=== PATIENT | male | born 1950 | race Caucasian/White ===

== ENCOUNTER 2018-03-15 19:53 | Inpatient (IN) | payer MEDICARE, MEDICAID ==
[~2018-03-15] VITALS: Ht 177.8 cm; Wt 90.3 kg
[~2018-03-15 19:53] MED LIST: FERROUS SULFAT325 MG ORAL; FLEET ENEMA133 ML RECTAL; JANUVIA25 MG ORAL; MILK OF MA400 MG/51 ORAL; NOVOLIN R100 UNIT/1 SUBQ; PROTONIX40 MG ORAL; TYLENOL325 MG ORAL; VITAMIN C500 M1 ORAL
[2018-03-15 19:55] VITALS: BP 158/80
--- NOTE | 2018-03-15 19:55 | NUR ---
ED Nurse Note: "Gradual weight loss (13# over three months), and one dark stool today. pt is alert and oriented times 4 and is able to follow commands. pt denies any pain. pt denies any complications with voiding or passing stool.
[2018-03-15] MEDS ORDERED: ZYPREXA5 MG ORAL (20:00)
[2018-03-15] MEDS ORDERED: TAMSULOSIN HCL0.4 MG ORAL (20:00)
[2018-03-15] MEDS ORDERED: mylanta (20:00)
[2018-03-15] MEDS ORDERED: COLACE100 MG ORAL (20:00)
[2018-03-15] MEDS ORDERED: NORVASC5 MG ORAL (20:00)
[2018-03-15] MEDS ORDERED: AMARYL1 MG ORAL (20:00)
[2018-03-15 21:03] LABS: APPEARANCE,URINE CLEAR; BILIRUBIN, URINE NEGATIVE (NEGATIVE); COLOR,URINE PALE YELLOW; GLUCOSE, URINE (UA) NEGATIVE (NEGATIVE); KETONES,URINE NEGATIVE (NEGATIVE); LEUKOCYTE ESTERASE ,URINE NEGATIVE (NEGATIVE); NITRITE,URINE NEGATIVE (NEGATIVE); PH,URINE 7 (4.5-8.0); PROTEIN,URINE NEGATIVE (NEGATIVE); UROBILINOGEN,URINE NORMAL MG/DL (0.0-1.0)
--- NOTE | 2018-03-15 21:33 | Emergency Room Report ---
History of Present Illness General Chief Complaint: General Complaint Source: Medical Record Present Illness HPI Patient presents emergency department today complaining of general weakness decreased appetite weight loss and melena. Patient denies any fever chest pain shortness breath. Patient primary care physician is Dr. Sabino Adam. Patient fairly stays at a snf. Patient has history of dementia. Symptoms noted to be moderate.No other modifying factors. No other associated signs and symptoms. No other complaints were noted. Allergies: Coded Allergies: No Known Allergies (Unverified , 06/04/15) Patient History Past Medical History: DM, HTN Past Surgical History: none Pertinent Family History: none Social History: Denies: smoking, alcohol use, drug use Reviewed Nursing Documentation: PMH: Agreed; PSxH: Agreed Nursing Documentation-PMH Hx Hypertension: Yes Hx Diabetes: Yes Hx Gastrointestinal Problems: Yes - Reflux Review of Systems All Other Systems: negative except mentioned in HPI Physical Exam Vital Signs Date Time Temp Pulse Resp B/P (MAP) Pulse Ox O2 Delivery O2 Flow Rate FiO2 03/15/18 19:46 97.3 76 18 158/80 94 Room Air 03/15/18 19:55 99 Sp02 EP Interpretation: reviewed, normal General Appearance: normal inspection, well appearing, no apparent distress, alert Head: atraumatic Eyes: bilateral eye normal inspection ENT: normal ENT inspection, hearing grossly normal, normal voice Neck: normal inspection, full range of motion, supple, no bony tend Respiratory: normal inspection, lungs clear, normal breath sounds, no respiratory distress, no retraction, no wheezing Cardiovascular #1: regular rate, rhythm, no edema Gastrointestinal: normal inspection, normal bowel sounds, non tender, soft, no guarding, no hernia Rectal: other - patient refused Genitourinary: no CVA tenderness Musculoskeletal: normal inspection, back normal, normal range of motion Neurologic: normal inspection, alert, responsive, speech normal Psychiatric: normal inspection, judgement/insight normal, mood/affect normal Skin: normal inspection, normal color, no rash Medical Decision Making Diagnostic Impression: Primary Impression: Failure to thrive in adult Additional Impression: GI bleeding ER Course Patient presents emergency department today with weakness and possible GI bleeding. Differential considerations include electrolyte abnormality, anemia, upper or lower GI bleeding.Given the severity of the patient's presentation I felt this is a highly complex patient. This patient required extensive workup. Patient laboratory workup is pending this time will likely admit to Dr. Sabino Adam for further treatment. Labs Test 03/15/18 20:45 03/15/18 21:14 Urine Color Pale yellow Urine Appearance Clear Urine pH 7 (4.5-8.0) Urine Specific [place] 1.005 (1.005-1.035) Urine Protein Negative (NEGATIVE) Urine Glucose (UA) Negative (NEGATIVE) Urine Ketones Negative (NEGATIVE) Urine Blood Negative (NEGATIVE) Urine Nitrite Negative (NEGATIVE) Urine Bilirubin Negative (NEGATIVE) Urine Urobilinogen Normal MG/DL (0.0-1.0) Urine Leukocyte Esterase Negative (NEGATIVE) Last Vital Signs Date Time Temp Pulse Resp B/P (MAP) Pulse Ox O2 Delivery O2 Flow Rate FiO2 03/15/18 19:55 76 18 Room Air 99 03/15/18 19:55 97.3 158/80 94 Status: improved Disposition: ADMITTED INPATIENT Condition: Serious Referrals: Sabino Gomez MD (PCP) Raymon Barnett MD Mar 15, 2018 21:33
[2018-03-15 21:42] LABS: INR 1.1 (0.9-1.1)
[2018-03-15 21:45] LABS: BASOPHILS % (AUTO) 1.2 % (0.0-2.0); EOSINOPHILS % (AUTO) 2.1 % (0.0-3.0); HEMATOCRIT 41.7 % (42.0-52.0); HEMOGLOBIN 13.2 G/DL (14.2-18.0); LYMPHOCYTES % (AUTO) 15.3 % (20.0-45.0); MEAN CORPUSCULAR VOLUME 82 FL (80-99); MONOCYTES % (AUTO) 8.7 % (1.0-10.0); NEUTROPHILS % (AUTO) 72.7 % (45.0-75.0); PLATELET COUNT 221 K/UL (150-450); RED BLOOD COUNT 5.08 M/UL (4.70-6.10); RED CELL DISTRIBUTION WIDTH 16.1 % (11.6-14.8); WHITE BLOOD COUNT 9.3 K/UL (4.8-10.8)
[2018-03-15 21:46] LABS: ANION GAP 7 mmol/L (5-15); BLOOD UREA NITROGEN 16 mg/dL (7-18); CARBON DIOXIDE 30 MMOL/L (21-32); CHLORIDE 105 MMOL/L (98-107); CREATININE 1.3 MG/DL (0.55-1.30); POTASSIUM 3.5 MMOL/L (3.5-5.1); SODIUM 142 MMOL/L (136-145)
[2018-03-15 21:51] LABS: ALANINE AMINOTRANSFERASE 19 U/L (12-78); ALBUMIN 3.2 G/DL (3.4-5.0); ALBUMIN/GLOBULIN RATIO 0.7 (1.0-2.7); ALKALINE PHOSPHATASE 120 U/L (46-116); ASPARTATE AMINO TRANSFERASE 21 U/L (15-37); BILIRUBIN,TOTAL 0.3 MG/DL (0.2-1.0)
[2018-03-15 22:13] VITALS: BP 150/78
--- NOTE | 2018-03-15 23:02 | NUR ---
ED Nurse Note: pt is transfered to MED SURG with RN KP. pt status vital signs, status and condition has been reported to ERMD and receving RN. pt is stable for transfer.
[2018-03-15 23:03] VITALS: BP 145/78
--- NOTE | 2018-03-15 23:09 | NUR ---
ED Nurse Note: PT refused CRE/ VRE and MRSA swab.
[2018-03-16] VITALS: BP 136/96
[2018-03-16] MEDS ORDERED: Fleet's Enema 133ml RECTAL PRN
--- NOTE | 2018-03-16 | NUR ---
NURSE NOTES: Admitted patient awake,alert,verbal,ambulatory,follows command,with essentially normal vital signs. Admiting orders obtained from DR Gomez and carried out. Patient refused to removed his street clothes to hospital gown.
[2018-03-16 03:52] VITALS: BP 120/82
--- NOTE | 2018-03-16 07:00 | NUR ---
HAND-OFF: Report given to Aline Solares RN.Patient refused to be hooked back his IV fluid..
--- NOTE | 2018-03-16 07:27 | NUR ---
nurse notes received patient sitting on the edge of the bed, patient aaox4, no sign of distress, HL patent refused to hook for IV , npo X meds instructed, on fall precaution observed and maintained, kept clean dry and intact, will cont. to monitor leonardo hidalgo
[2018-03-16] MEDS: Docusate 100mg cap ORAL SCH (08:09)
[2018-03-16] MEDS: Ascorbic Acid 500mg tab ORAL SCH (08:09)
[2018-03-16] MEDS: Milk of Magnesia 30ml Ud ORAL SCH (08:09)
--- NOTE | 2018-03-16 09:01 | NUR ---
NURSE NOTES PATIENT REFUSED LABS AND V/S THIS MORNING BRONWYN, EN
--- NOTE | 2018-03-16 12:15 | GI Initial Consult Note ---
History of Present Illness General Date patient seen: Mar 16, 2018 Time patient seen: 12:10 Reason for Hospitalization: General Complaint Referring physician: SABINO DODD Reason for Consultation: GI BLEED Present Illness HPI Patient presents emergency department today complaining of general weakness decreased appetite weight loss and melena. Patient denies any fever chest pain shortness breath. Patient primary care physician is Dr. Sabino Adam. Patient fairly stays at a senior care. Patient has history of dementia. Symptoms noted to be moderate.No other modifying factors. No other associated signs and symptoms. No other complaints were noted. GI consulted for reported melena. ROS limited, patient with psychiatric history currently refusing all care. Patient denies any abdominal pain. Denies any report of dark stools. Denies any nausea or vomiting. The patient is refusing all care and is just requesting to be left alone. Unknown history of endoscopic colonoscopy at this time. Labs reviewed showed that the patient have mild normocytic anemia and mild alkaline phosphatase elevation. Unable to obtain any other history. Home Meds Reported Medications Olanzapine* (ZYPREXA*) 5 Mg Tablet, 5 MG ORAL DAILY, TAB 03/15/18 Amlodipine Besylate (Norvasc) 5 Mg Tablet, 5 MG ORAL DAILY, TAB 03/15/18 [mylanta] No Conflict Check 03/15/18 Tamsulosin Hcl (TAMSULOSIN HCL*) 0.4 Mg Cap.er.24h, 0.4 MG ORAL BEDTIME, CAP 03/15/18 Docusate Sodium* (COLACE*) 100 Mg Capsule, 100 MG ORAL DAILY, CAP 03/15/18 Glimepiride* (AMARYL*) 1 Mg Tablet, 1 MG ORAL DAILY, TAB 03/15/18 Insulin Regular, Human* (NOVOLIN R*) 100 Unit/1 Ml Vial, 0 SUBQ BIDAC, UNITS 07/21/15 Na Phos,M-B/Na Phos,Di-Ba* (FLEET ENEMA*) 133 Ml Enema, 133 ML RECTAL DAILY PRN for Constipation, ML 0 Refills 07/21/15 Ascorbic Acid* (VITAMIN C*) 500 Mg Tablet, 500 MG ORAL DAILY, #30 TAB 0 Refills 07/21/15 Acetaminophen (Tylenol) 325 Mg Tab, 325 MG ORAL Q6H PRN for For Pain, #30 TAB 0 Refills 07/21/15 Pantoprazole* (PROTONIX*) 40 Mg Tablet.dr, 40 MG ORAL DAILY, TAB 07/21/15 Magnesium Hydroxide* (MILK OF MAGNESIA*) 400 Mg/5 Ml Oral.susp, 30 ML ORAL DAILY , ML 07/21/15 Sitagliptin* (JANUVIA*) 25 Mg Tablet, 100 MG ORAL DAILY, TAB 07/21/15 Ferrous Sulfate* (FERROUS SULFATE*) 325 Mg Tablet, 325 MG ORAL DAILY, #30 TAB 0 Refills 07/21/15 Med list reviewed/reconciled: Yes Allergies: Coded Allergies: No Known Allergies (Unverified , 06/04/15) Patient History PMH Narrative Past Medical History: DM, HTN Past Surgical History: none Pertinent Family History: none Social History: Denies: smoking, alcohol use, drug use Reviewed Nursing Documentation: PMH: Agreed; PSxH: Agreed Nursing Documentation-PMH Hx Hypertension: Yes Hx Diabetes: Yes Hx Gastrointestinal Problems: Yes - Reflux Social History: Denies: smoking, alcohol use, drug use, other Review of Systems All Other Systems: negative except mentioned in HPI Physical Exam Vital Signs Date Time Temp Pulse Resp B/P (MAP) Pulse Ox O2 Delivery O2 Flow Rate FiO2 03/15/18 19:46 97.3 76 18 158/80 94 Room Air 03/15/18 19:55 99 Sp02 EP Interpretation: reviewed, normal Labs Laboratory Tests Test 03/15/18 20:45 03/15/18 21:14 Urine Color Pale yellow Urine Appearance Clear Urine pH 7 (4.5-8.0) Urine Specific [place] 1.005 (1.005-1.035) Urine Protein Negative (NEGATIVE) Urine Glucose (UA) Negative (NEGATIVE) Urine Ketones Negative (NEGATIVE) Urine Blood Negative (NEGATIVE) Urine Nitrite Negative (NEGATIVE) Urine Bilirubin Negative (NEGATIVE) Urine Urobilinogen Normal MG/DL (0.0-1.0) Urine Leukocyte Esterase Negative (NEGATIVE) White Blood Count 9.3 K/UL (4.8-10.8) Red Blood Count 5.08 M/UL (4.70-6.10) Hemoglobin 13.2 G/DL (14.2-18.0) L Hematocrit 41.7 % (42.0-52.0) L Mean Corpuscular Volume 82 FL (80-99) Mean Corpuscular Hemoglobin 25.9 PG (27.0-31.0) L Mean Corpuscular Hemoglobin Concent 31.6 G/DL (32.0-36.0) L Red Cell Distribution Width 16.1 % (11.6-14.8) H Platelet Count 221 K/UL (150-450) Mean Platelet Volume 8.3 FL (6.5-10.1) Neutrophils (%) (Auto) 72.7 % (45.0-75.0) Lymphocytes (%) (Auto) 15.3 % (20.0-45.0) L Monocytes (%) (Auto) 8.7 % (1.0-10.0) Eosinophils (%) (Auto) 2.1 % (0.0-3.0) Basophils (%) (Auto) 1.2 % (0.0-2.0) Prothrombin Time 11.6 SEC (9.30-11.50) H Prothromb Time International Ratio 1.1 (0.9-1.1) Activated Partial Thromboplast Time 27 SEC (23-33) Sodium Level 142 MMOL/L (136-145) Potassium Level 3.5 MMOL/L (3.5-5.1) Chloride Level 105 MMOL/L (98-107) Carbon Dioxide Level 30 MMOL/L (21-32) Anion Gap 7 mmol/L (5-15) Blood Urea Nitrogen 16 mg/dL (7-18) Creatinine 1.3 MG/DL (0.55-1.30) Estimat Glomerular Filtration Rate 54.7 mL/min (>60) Glucose Level 87 MG/DL (74-106) Calcium Level 9.0 MG/DL (8.5-10.1) Total Bilirubin 0.3 MG/DL (0.2-1.0) Aspartate Amino Transf (AST/SGOT) 21 U/L (15-37) Alanine Aminotransferase (ALT/SGPT) 19 U/L (12-78) Alkaline Phosphatase 120 U/L (46-116) H Troponin I 0.000 ng/mL (0.000-0.056) Total Protein 7.9 G/DL (6.4-8.2) Albumin 3.2 G/DL (3.4-5.0) L Globulin 4.7 g/dL Albumin/Globulin Ratio 0.7 (1.0-2.7) L Lipase 232 U/L (73-393) General Appearance: well appearing, no apparent distress, alert Head: normocephalic EENT: PERRL/EOMI, normal ENT inspection Neck: supple Respiratory: normal breath sounds, no respiratory distress Cardiovascular: normal rate Gastrointestinal: normal inspection, non tender, soft, normal bowel sounds, non -distended Rectal: deferred Genitourinary: deferred Musculoskeletal: normal inspection, back normal Neurologic: normal inspection, alert, oriented x3, responsive Psychiatric: normal inspection, judgement/insight normal, memory normal Skin: normal inspection, normal color, no rash, warm/dry, palpation normal, well hydrated Lymphatic: normal inspection, no adenopathy Current Medications Current Medications Medications (Trade) Dose Ordered Sig/Pablo Route PRN Reason Start Time Stop Time Status Last Admin Dose Admin Acetaminophen (Tylenol) 650 mg Q4H PRN ORAL Mild Pain/Temp > 100.5 03/16/18 00:00 04/15/18 00:00 Amlodipine Besylate (Norvasc) 5 mg DAILY ORAL 03/16/18 09:00 04/15/18 08:59 03/16/18 08:10 Ascorbic Acid (Vitamin C) 500 mg DAILY ORAL 03/16/18 09:00 04/15/18 08:59 03/16/18 08:09 Docusate Sodium (Colace) 100 mg DAILY ORAL 03/16/18 09:00 04/15/18 08:59 03/16/18 08:09 Ferrous Sulfate (Feosol) 325 mg DAILY ORAL 03/16/18 09:00 04/15/18 08:59 03/16/18 08:09 Magnesium Hydroxide (Mom) 30 ml DAILY ORAL 03/16/18 09:00 04/15/18 08:59 03/16/18 08:09 Olanzapine (ZyPREXA) 5 mg DAILY ORAL 03/16/18 09:00 04/15/18 08:59 03/16/18 08:09 Pantoprazole (Protonix) 40 mg DAILY ORAL 03/16/18 09:00 04/15/18 08:59 03/16/18 08:09 Sodium Chloride 1,000 ml @ 65 mls/hr [id number] IV 03/16/18 00:00 04/15/18 00:00 2/7/19 00:33 Sodium Phosphate (Fleet's Sodium Phosl Enema) 133 ml DAILY PRN RECTAL Constipation 03/16/18 00:00 04/15/18 00:00 Tamsulosin HCl (Flomax) 0.4 mg BEDTIME ORAL 03/16/18 21:00 04/15/18 20:59 GI: Plan Problems: (1) Failure to thrive in adult (2) GI bleeding (3) Psychiatric disorder Plan Patient is refusing all care We will advance diet monitor for any signs of bleeding. anemia work up OB stool r/o GI bleed monitor H&H, prn transfusions bowel regime ppi fu labs will consider endoscopy if urgent Needs psychiatric follow-up Discussed with Dr. Rivera. Thank you for this patient referral, we will follow. The patient was seen and examined at bedside and all new and available data was reviewed in the patients chart. I agree with the above findings, impression and plan. (Patient seen earlier today. Signature stamp does not reflect patient encounter time.). - MD Anabelle Antoine,[facility] Mar 16, 2018 12:15
--- NOTE | 2018-03-16 12:34 | Consultation ---
History of Present Illness General Chief Complaint: General Complaint Referring physician: OTIS DODD Reason for Consultation: GI BLEED Present Illness HPI 67 yo male with hx of schzophrenia, general weakness decreased appetite weight loss and melena. Patient denies any fever chest pain shortness breath. the pt is disorganized and easily agitated the pt is not following redirection Allergies: Coded Allergies: No Known Allergies (Unverified , 06/04/15) Medication History Scheduled Amlodipine Besylate (Norvasc), 5 MG ORAL DAILY, (Reported) Ascorbic Acid* (Vitamin C*), 500 MG ORAL DAILY, (Reported) Docusate Sodium* (Colace*), 100 MG ORAL DAILY, (Reported) Ferrous Sulfate* (Ferrous Sulfate*), 325 MG ORAL DAILY, (Reported) Glimepiride* (Amaryl*), 1 MG ORAL DAILY, (Reported) Insulin Regular, Human* (Novolin R*), 0 SUBQ BIDAC, (Reported) Magnesium Hydroxide* (Milk Of Magnesia*), 30 ML ORAL DAILY, (Reported) Olanzapine* (Zyprexa*), 5 MG ORAL DAILY, (Reported) Pantoprazole* (Protonix*), 40 MG ORAL DAILY, (Reported) Sitagliptin* (Januvia*), 100 MG ORAL DAILY, (Reported) Tamsulosin Hcl (Tamsulosin Hcl*), 0.4 MG ORAL BEDTIME, (Reported) Scheduled PRN Acetaminophen (Tylenol), 325 MG ORAL Q6H PRN for For Pain, (Reported) Na Phos,M-B/Na Phos,Di-Ba* (Fleet Enema*), 133 ML RECTAL DAILY PRN for Constipation, (Reported) Miscellaneous Medications [mylanta], (Reported) Patient History Limited by: medical condition History Provided By: Patient, Medical Record, PMD Healthcare decision maker Resuscitation status Full Code Advanced Directive on File No Past Medical/Surgical History Past Medical/Surgical History: (1) GI bleeding (2) Psychiatric disorder (3) Failure to thrive in adult Review of Systems Psychiatric: Reports: prior hx, anxiety, depressed feelings, emotional problems , hallucinations Physical Exam General Appearance: alert, confused, agitated Last 24 Hour Vital Signs Date Time Temp Pulse Resp B/P (MAP) Pulse Ox O2 Delivery O2 Flow Rate FiO2 03/16/18 08:10 72 120/82 03/16/18 08:00 Room Air 03/16/18 03:52 98.5 72 18 120/82 (95) 95 03/16/18 00:00 98.1 73 19 136/96 (109) 95 03/15/18 23:59 Room Air 03/15/18 23:04 97.3 70 17 145/78 99 Room Air 99 03/15/18 23:03 97.3 70 17 145/78 99 Room Air 03/15/18 22:13 97.3 79 17 150/78 99 Room Air 03/15/18 19:55 76 18 Room Air 99 03/15/18 19:55 97.3 83 18 158/80 94 Room Air 03/15/18 19:46 97.3 76 18 158/80 94 Room Air Intake and Output 03/15/18 03/16/18 19:00 07:00 Intake Total 390 ml Balance 390 ml Intake IV Total 390 ml # Voids 1 Laboratory Tests Test 03/15/18 20:45 03/15/18 21:14 Urine Color Pale yellow Urine Appearance Clear Urine pH 7 (4.5-8.0) Urine Specific [place] 1.005 (1.005-1.035) Urine Protein Negative (NEGATIVE) Urine Glucose (UA) Negative (NEGATIVE) Urine Ketones Negative (NEGATIVE) Urine Blood Negative (NEGATIVE) Urine Nitrite Negative (NEGATIVE) Urine Bilirubin Negative (NEGATIVE) Urine Urobilinogen Normal MG/DL (0.0-1.0) Urine Leukocyte Esterase Negative (NEGATIVE) White Blood Count 9.3 K/UL (4.8-10.8) Red Blood Count 5.08 M/UL (4.70-6.10) Hemoglobin 13.2 G/DL (14.2-18.0) L Hematocrit 41.7 % (42.0-52.0) L Mean Corpuscular Volume 82 FL (80-99) Mean Corpuscular Hemoglobin 25.9 PG (27.0-31.0) L Mean Corpuscular Hemoglobin Concent 31.6 G/DL (32.0-36.0) L Red Cell Distribution Width 16.1 % (11.6-14.8) H Platelet Count 221 K/UL (150-450) Mean Platelet Volume 8.3 FL (6.5-10.1) Neutrophils (%) (Auto) 72.7 % (45.0-75.0) Lymphocytes (%) (Auto) 15.3 % (20.0-45.0) L Monocytes (%) (Auto) 8.7 % (1.0-10.0) Eosinophils (%) (Auto) 2.1 % (0.0-3.0) Basophils (%) (Auto) 1.2 % (0.0-2.0) Prothrombin Time 11.6 SEC (9.30-11.50) H Prothromb Time International Ratio 1.1 (0.9-1.1) Activated Partial Thromboplast Time 27 SEC (23-33) Sodium Level 142 MMOL/L (136-145) Potassium Level 3.5 MMOL/L (3.5-5.1) Chloride Level 105 MMOL/L (98-107) Carbon Dioxide Level 30 MMOL/L (21-32) Anion Gap 7 mmol/L (5-15) Blood Urea Nitrogen 16 mg/dL (7-18) Creatinine 1.3 MG/DL (0.55-1.30) Estimat Glomerular Filtration Rate 54.7 mL/min (>60) Glucose Level 87 MG/DL (74-106) Calcium Level 9.0 MG/DL (8.5-10.1) Total Bilirubin 0.3 MG/DL (0.2-1.0) Aspartate Amino Transf (AST/SGOT) 21 U/L (15-37) Alanine Aminotransferase (ALT/SGPT) 19 U/L (12-78) Alkaline Phosphatase 120 U/L (46-116) H Troponin I 0.000 ng/mL (0.000-0.056) Total Protein 7.9 G/DL (6.4-8.2) Albumin 3.2 G/DL (3.4-5.0) L Globulin 4.7 g/dL Albumin/Globulin Ratio 0.7 (1.0-2.7) L Lipase 232 U/L (73-393) Height (Feet): 5 Height (Inches): 10.00 Weight (Pounds): 199 Medications Current Medications Medications (Trade) Dose Ordered Sig/Pablo Route PRN Reason Start Time Stop Time Status Last Admin Dose Admin Acetaminophen (Tylenol) 650 mg Q4H PRN ORAL Mild Pain/Temp > 100.5 03/16/18 00:00 04/15/18 00:00 Amlodipine Besylate (Norvasc) 5 mg DAILY ORAL 03/16/18 09:00 04/15/18 08:59 03/16/18 08:10 Ascorbic Acid (Vitamin C) 500 mg DAILY ORAL 03/16/18 09:00 04/15/18 08:59 03/16/18 08:09 Docusate Sodium (Colace) 100 mg DAILY ORAL 03/16/18 09:00 04/15/18 08:59 03/16/18 08:09 Ferrous Sulfate (Feosol) 325 mg DAILY ORAL 03/16/18 09:00 04/15/18 08:59 03/16/18 08:09 Magnesium Hydroxide (Mom) 30 ml DAILY ORAL 03/16/18 09:00 04/15/18 08:59 03/16/18 08:09 Olanzapine (ZyPREXA) 5 mg DAILY ORAL 03/16/18 09:00 04/15/18 08:59 03/16/18 08:09 Pantoprazole (Protonix) 40 mg DAILY ORAL 03/16/18 09:00 04/15/18 08:59 03/16/18 08:09 Sodium Chloride 1,000 ml @ 65 mls/hr [id number] IV 03/16/18 00:00 04/15/18 00:00 03/16/18 00:33 Sodium Phosphate (Fleet's Sodium Phosl Enema) 133 ml DAILY PRN RECTAL Constipation 03/16/18 00:00 04/15/18 00:00 Tamsulosin HCl (Flomax) 0.4 mg BEDTIME ORAL 03/16/18 21:00 04/15/18 20:59 Assessment/Plan Problem List: (1) Acute metabolic encephalopathy ICD Codes: G93.41 - Metabolic encephalopathy SNOMED: 70861751, 819799546 (2) Failure to thrive in adult ICD Codes: R62.7 - Adult failure to thrive SNOMED: 003237335 (3) Schizophrenia ICD Codes: F20.9 - Schizophrenia, unspecified SNOMED: 35175435 Assessment/Plan zyprexa was given at outside facility zyprexa 10mg po qhs the pt lacks capacity to leave Andrea Palomo MD Mar 16, 2018 12:34
--- NOTE | 2018-03-16 13:00 | NUR ---
nurse notes seen by Dr Melgar with order noted and carried out leonardo hidalgo
--- NOTE | 2018-03-16 15:15 | NUR ---
ARCHITECTURAL RENDEREROCCUP THERAPIST 67 YO MALE BIBA FROM [facility] CONV TO ER CC WT LOSS DARK TARRY STOOL X 1 SI: GI BLEED T. 97.4 HR 76 RR 18 B/P 94/62 H/H 13.2/41.7 AST 120 IS: H/L INSERTION ADMITTED TO MED/SURG @4522 MED/SURG STATUS DCP RETURN TO [facility]
--- NOTE | 2018-03-16 16:07 | NUR ---
nurse notes refused v/s, blood sugar, and IVF, ambulate on the hallway steady gait, still patient refused to wear hospital gown, fall and elopement precaution observed leonardo hidalgo
--- NOTE | 2018-03-16 19:05 | NUR ---
HAND-OFF: Report given to PALLAVI duncan.
--- NOTE | 2018-03-16 19:30 | NUR ---
NURSE NOTES: Received patient in no apparent distress. A&OX2 with confusion, wandering arce way, couldn't find own room twice, reoriented. IV site patent and intact. Bed in lowest position. Call light within reach. Will continue to monitor.
[2018-03-16 20:00] VITALS: BP 141/70
[2018-03-16] MEDS: Tamsulosin 0.4mg cap ORAL SCH (20:42)
--- NOTE | 2018-03-16 20:44 | NUR ---
NURSE NOTES: Patient removed IV. Refused new IV insert. Will try again.
[2018-03-16] MEDS ORDERED: OLANZapine 10mg tab ORAL SCH (21:00)
--- NOTE | 2018-03-16 21:55 | Consultation ---
History of Present Illness General Chief Complaint: General Complaint Referring physician: OTIS GOMEZ Reason for Consultation: GI BLEED Present Illness Allergies: Coded Allergies: No Known Allergies (Unverified , 06/04/15) Medication History Scheduled Amlodipine Besylate (Norvasc), 5 MG ORAL DAILY, (Reported) Ascorbic Acid* (Vitamin C*), 500 MG ORAL DAILY, (Reported) Docusate Sodium* (Colace*), 100 MG ORAL DAILY, (Reported) Ferrous Sulfate* (Ferrous Sulfate*), 325 MG ORAL DAILY, (Reported) Glimepiride* (Amaryl*), 1 MG ORAL DAILY, (Reported) Insulin Regular, Human* (Novolin R*), 0 SUBQ BIDAC, (Reported) Magnesium Hydroxide* (Milk Of Magnesia*), 30 ML ORAL DAILY, (Reported) Olanzapine* (Zyprexa*), 5 MG ORAL DAILY, (Reported) Pantoprazole* (Protonix*), 40 MG ORAL DAILY, (Reported) Sitagliptin* (Januvia*), 100 MG ORAL DAILY, (Reported) Tamsulosin Hcl (Tamsulosin Hcl*), 0.4 MG ORAL BEDTIME, (Reported) Scheduled PRN Acetaminophen (Tylenol), 325 MG ORAL Q6H PRN for For Pain, (Reported) Na Phos,M-B/Na Phos,Di-Ba* (Fleet Enema*), 133 ML RECTAL DAILY PRN for Constipation, (Reported) Miscellaneous Medications [mylanta], (Reported) Patient History Healthcare decision maker Resuscitation status Full Code Advanced Directive on File No Physical Exam Last 24 Hour Vital Signs Date Time Temp Pulse Resp B/P (MAP) Pulse Ox O2 Delivery O2 Flow Rate FiO2 03/16/18 20:00 97.5 71 19 141/70 (93) 95 03/16/18 08:10 72 120/82 03/16/18 08:00 Room Air 03/16/18 03:52 98.5 72 18 120/82 (95) 95 03/16/18 00:00 98.1 73 19 136/96 (109) 95 03/15/18 23:59 Room Air 03/15/18 23:04 97.3 70 17 145/78 99 Room Air 99 03/15/18 23:03 97.3 70 17 145/78 99 Room Air 03/15/18 22:13 97.3 79 17 150/78 99 Room Air Intake and Output 03/15/18 03/16/18 18:59 06:59 Intake Total 390 ml Balance 390 ml IV Total 390 ml # Voids 1 Height (Feet): 5 Height (Inches): 10.00 Weight (Pounds): 199 Medications Current Medications Medications (Trade) Dose Ordered Sig/Pablo Route PRN Reason Start Time Stop Time Status Last Admin Dose Admin Acetaminophen (Tylenol) 650 mg Q4H PRN ORAL Mild Pain/Temp > 100.5 03/16/18 00:00 04/15/18 00:00 Amlodipine Besylate (Norvasc) 5 mg DAILY ORAL 03/16/18 09:00 04/15/18 08:59 03/16/18 08:10 Ascorbic Acid (Vitamin C) 500 mg DAILY ORAL 03/16/18 09:00 04/15/18 08:59 03/16/18 08:09 Docusate Sodium (Colace) 100 mg DAILY ORAL 03/16/18 09:00 04/15/18 08:59 03/16/18 08:09 Ferrous Sulfate (Feosol) 325 mg DAILY ORAL 03/16/18 09:00 04/15/18 08:59 03/16/18 08:09 Magnesium Hydroxide (Mom) 30 ml DAILY ORAL 03/16/18 09:00 04/15/18 08:59 03/16/18 08:09 Olanzapine (ZyPREXA) 10 mg BEDTIME ORAL 03/16/18 21:00 04/15/18 20:59 03/16/18 20:39 Pantoprazole (Protonix) 40 mg DAILY ORAL 03/16/18 09:00 04/15/18 08:59 03/16/18 08:09 Sodium Chloride 1,000 ml @ 65 mls/hr [id number] IV 03/16/18 00:00 04/15/18 00:00 03/16/18 00:33 Sodium Phosphate (Fleet's Sodium Phosl Enema) 133 ml DAILY PRN RECTAL Constipation 03/16/18 00:00 04/15/18 00:00 Tamsulosin HCl (Flomax) 0.4 mg BEDTIME ORAL 03/16/18 21:00 04/15/18 20:59 Assessment/Plan Assessment/Plan Hematology/Oncology Consultation Requesting MD: Otis Gomez Date of Service: 03/16/18 Reason for consultation: Anemia and Failure to thrive. HPI: Patient presents to the emergency department today complaining of general weakness decreased appetite weight loss and melena. Patient denies any fever chest pain shortness breath. Patient has history of dementia. GI consulted for reported melena. ROS limited, patient with psychiatric history currently refusing all care. Patient denies any abdominal pain. Denies any report of dark stools. Denies any nausea or vomiting. The patient is refusing all care and is just requesting to be left alone. Unknown history of endoscopic colonoscopy at this time. Labs reviewed showed that the patient have mild normocytic anemia. Hematology/Oncology was consulted for Anemia and Failure to thrive. Hgb 13. Past Medical History: DM, HTN Past Surgical History: none Pertinent Family History: none Social History: Denies: smoking, alcohol use, drug use Reviewed Nursing Documentation: PMH: Agreed; PSxH: Agreed Home Meds Reported Medications Olanzapine* (ZYPREXA*) 5 Mg Tablet, 5 MG ORAL DAILY, TAB 03/15/18 Amlodipine Besylate (Norvasc) 5 Mg Tablet, 5 MG ORAL DAILY, TAB 03/15/18 [mylanta] No Conflict Check 03/15/18 Tamsulosin Hcl (TAMSULOSIN HCL*) 0.4 Mg Cap.er.24h, 0.4 MG ORAL BEDTIME, CAP 03/15/18 Docusate Sodium* (COLACE*) 100 Mg Capsule, 100 MG ORAL DAILY, CAP 03/15/18 Glimepiride* (AMARYL*) 1 Mg Tablet, 1 MG ORAL DAILY, TAB 03/15/18 Insulin Regular, Human* (NOVOLIN R*) 100 Unit/1 Ml Vial, 0 SUBQ BIDAC, UNITS 07/21/15 Na Phos,M-B/Na Phos,Di-Ba* (FLEET ENEMA*) 133 Ml Enema, 133 ML RECTAL DAILY PRN for Constipation, ML 0 Refills 07/21/15 Ascorbic Acid* (VITAMIN C*) 500 Mg Tablet, 500 MG ORAL DAILY, #30 TAB 0 Refills 07/21/15 Acetaminophen (Tylenol) 325 Mg Tab, 325 MG ORAL Q6H PRN for For Pain, #30 TAB 0 Refills 07/21/15 Pantoprazole* (PROTONIX*) 40 Mg Tablet.dr, 40 MG ORAL DAILY, TAB 07/21/15 Magnesium Hydroxide* (MILK OF MAGNESIA*) 400 Mg/5 Ml Oral.susp, 30 ML ORAL DAILY , ML 07/21/15 Sitagliptin* (JANUVIA*) 25 Mg Tablet, 100 MG ORAL DAILY, TAB 07/21/15 Ferrous Sulfate* (FERROUS SULFATE*) 325 Mg Tablet, 325 MG ORAL DAILY, #30 TAB 0 Refills 07/21/15 Med list reviewed/reconciled: Yes Allergies: Coded Allergies: No Known Allergies (Unverified , 06/04/15) Nursing Documentation-PMH Hx Hypertension: Yes Hx Diabetes: Yes Hx Gastrointestinal Problems: Yes - Reflux Social History: Denies: smoking, alcohol use, drug use, other Physical Exam Vital Signs Date Time Temp Pulse Resp B/P (MAP) Pulse Ox O2 Delivery O2 Flow Rate FiO2 03/15/18 19:46 97.3 76 18 158/80 94 Room Air 03/15/18 19:55 99 Sp02 EP Interpretation: reviewed, normal Labs Laboratory Tests Test 03/15/18 20:45 03/15/18 21:14 Urine Color Pale yellow Urine Appearance Clear Urine pH 7 (4.5-8.0) Urine Specific [place] 1.005 (1.005-1.035) Urine Protein Negative (NEGATIVE) Urine Glucose (UA) Negative (NEGATIVE) Urine Ketones Negative (NEGATIVE) Urine Blood Negative (NEGATIVE) Urine Nitrite Negative (NEGATIVE) Urine Bilirubin Negative (NEGATIVE) Urine Urobilinogen Normal MG/DL (0.0-1.0) Urine Leukocyte Esterase Negative (NEGATIVE) White Blood Count 9.3 K/UL (4.8-10.8) Red Blood Count 5.08 M/UL (4.70-6.10) Hemoglobin 13.2 G/DL (14.2-18.0) L Hematocrit 41.7 % (42.0-52.0) L Mean Corpuscular Volume 82 FL (80-99) Mean Corpuscular Hemoglobin 25.9 PG (27.0-31.0) L Mean Corpuscular Hemoglobin Concent 31.6 G/DL (32.0-36.0) L Red Cell Distribution Width 16.1 % (11.6-14.8) H Platelet Count 221 K/UL (150-450) Mean Platelet Volume 8.3 FL (6.5-10.1) Neutrophils (%) (Auto) 72.7 % (45.0-75.0) Lymphocytes (%) (Auto) 15.3 % (20.0-45.0) L Monocytes (%) (Auto) 8.7 % (1.0-10.0) Eosinophils (%) (Auto) 2.1 % (0.0-3.0) Basophils (%) (Auto) 1.2 % (0.0-2.0) Prothrombin Time 11.6 SEC (9.30-11.50) H Prothromb Time International Ratio 1.1 (0.9-1.1) Activated Partial Thromboplast Time 27 SEC (23-33) Sodium Level 142 MMOL/L (136-145) Potassium Level 3.5 MMOL/L (3.5-5.1) Chloride Level 105 MMOL/L (98-107) Carbon Dioxide Level 30 MMOL/L (21-32) Anion Gap 7 mmol/L (5-15) Blood Urea Nitrogen 16 mg/dL (7-18) Creatinine 1.3 MG/DL (0.55-1.30) Estimat Glomerular Filtration Rate 54.7 mL/min (>60) Glucose Level 87 MG/DL (74-106) Calcium Level 9.0 MG/DL (8.5-10.1) Total Bilirubin 0.3 MG/DL (0.2-1.0) Aspartate Amino Transf (AST/SGOT) 21 U/L (15-37) Alanine Aminotransferase (ALT/SGPT) 19 U/L (12-78) Alkaline Phosphatase 120 U/L (46-116) H Troponin I 0.000 ng/mL (0.000-0.056) Total Protein 7.9 G/DL (6.4-8.2) Albumin 3.2 G/DL (3.4-5.0) L Globulin 4.7 g/dL Albumin/Globulin Ratio 0.7 (1.0-2.7) L Lipase 232 U/L (73-393) General Appearance: well appearing, no apparent distress, alert Head: normocephalic EENT: PERRL/EOMI, normal ENT inspection Neck: supple Respiratory: normal breath sounds, no respiratory distress Cardiovascular: normal rate Gastrointestinal: normal inspection, non tender, soft, normal bowel sounds, non -distended Rectal: deferred Genitourinary: deferred Musculoskeletal: normal inspection, back normal Neurologic: normal inspection, alert, oriented x3, responsive Psychiatric: normal inspection, judgement/insight normal, memory normal Skin: normal inspection, normal color, no rash, warm/dry, palpation normal, well hydrated Lymphatic: normal inspection, no adenopathy Current Medications Current Medications Medications (Trade) Dose Ordered Sig/Pablo Route PRN Reason Start Time Stop Time Status Last Admin Dose Admin Acetaminophen (Tylenol) 650 mg Q4H PRN ORAL Mild Pain/Temp > 100.5 03/16/18 00:00 04/15/18 00:00 Amlodipine Besylate (Norvasc) 5 mg DAILY ORAL 03/16/18 09:00 04/15/18 08:59 03/16/18 08:10 Ascorbic Acid (Vitamin C) 500 mg DAILY ORAL 03/16/18 09:00 04/15/18 08:59 03/16/18 08:09 Docusate Sodium (Colace) 100 mg DAILY ORAL 03/16/18 09:00 04/15/18 08:59 03/16/18 08:09 Ferrous Sulfate (Feosol) 325 mg DAILY ORAL 03/16/18 09:00 04/15/18 08:59 03/16/18 08:09 Magnesium Hydroxide (Mom) 30 ml DAILY ORAL 03/16/18 09:00 04/15/18 08:59 03/16/18 08:09 Olanzapine (ZyPREXA) 5 mg DAILY ORAL 03/16/18 09:00 04/15/18 08:59 03/16/18 08:09 Pantoprazole (Protonix) 40 mg DAILY ORAL 03/16/18 09:00 04/15/18 08:59 03/16/18 08:09 Sodium Chloride 1,000 ml @ 65 mls/hr [id number] IV 03/16/18 00:00 04/15/18 00:00 03/16/18 00:33 Sodium Phosphate (Fleet's Sodium Phosl Enema) 133 ml DAILY PRN RECTAL Constipation 03/16/18 00:00 04/15/18 00:00 Tamsulosin HCl (Flomax) 0.4 mg BEDTIME ORAL 03/16/18 21:00 04/15/18 20:59 Assessment/Recommendations # Anemia of chronic disease (or of iron deficiency) due to underlying chronic medical issues, multifactorial -->Anemia workup has been ordered -->No evidence of hemolysis is noted, peripheral smear has been reviewed. -->Hgb goal >7. Transfuse prn. -->Epogen or iron at this time is not particularly indicated -->Medications have been reviewed # Failure to thrive in adult, Patient is refusing all care -->We will advance diet # GI bleeding, monitor for any signs of bleeding -->OB stool r/o GI bleed -->bowel regime -->will consider endoscopy if urgent -->appreciate GI recs # Psychiatric disorder -->needs psychiatric follow-up The timing of this note does not necessarily reflect the time of the patient was seen. Greatly appreciate consultation! Michael Perdomo MD Mar 16, 2018 21:55
--- NOTE | 2018-03-16 22:43 | NUR ---
NURSE NOTES: Patient wandering arce way, reoriented. Refused new IV insert. Will try again
[2018-03-17] VITALS: BP 153/100
--- NOTE | 2018-03-17 02:00 | History and Physical Report ---
DATE OF ADMISSION: 03/15/2018 HISTORY OF PRESENT ILLNESS: The patient came in because of weight loss and black tarry stools. The patient is a psychiatric patient, very agitated, psychosis. Does have history of GERD as well as diabetes. Denies nausea, vomiting, or diarrhea. The patient is a poor historian. No shortness of breath. No fever or chills. The patient denies nausea, vomiting, diarrhea. The patient is a poor historian. Comes from a senior care. PAST MEDICAL HISTORY: NIDDM, hypertension, history of GERD, as well as history of iron-deficiency anemia, psychosis, and BPH. ALLERGIES: No known allergies. PAST SURGICAL HISTORY: Denies. MEDICATIONS: Norvasc, vitamin C, Colace, ferrous sulfate, Amaryl, insulin, Zyprexa, Protonix, Januvia, and Flomax. FAMILY HISTORY: Noncontributory. SOCIAL HISTORY: He has a history of smoking. No alcohol or illicit drugs. Comes from a senior care. REVIEW OF SYSTEMS: HEENT: Denies headaches. RESPIRATORY: Denies shortness of breath. Denies cough. CARDIOVASCULAR: Denies chest pain. GASTROINTESTINAL: Does have black tarry stools. However, the patient is a poor historian. CENTRAL NERVOUS SYSTEM: Denies change in speech or vision pattern. A poor historian. PHYSICAL EXAMINATION: VITAL SIGNS: Temperature 98.5, pulse is 73, and blood pressure 120/82. HEENT: PERRLA. NECK: Supple. No lymphadenopathy. CHEST: Clear to auscultation. CARDIOVASCULAR: Regular rate and rhythm. GASTROINTESTINAL: Soft, nontender, and nondistended. No organomegaly. EXTREMITIES: No edema. Reflexes equal on both sides. Moves all four extremities. LABORATORY DATA: WBC of 9.3, hemoglobin of 13.2, and platelets 221,000. Sodium 142, potassium 3.5, BUN of 15, and creatinine 1.3. ASSESSMENT AND PLAN: Weight loss, black tarry stools, rule out gastrointestinal bleed. The patient is a psychiatric patient. I have asked Dr. Melgar, Dr. Rivera, , and Dr. Mcgee to see the patient for the weight loss workup as well as for low potassium as well as for agitation and psychiatric disorder, as well as for gastrointestinal bleed workup. Sabino Gomez M.D. DR: THI JOB#: [id number] CC:
--- NOTE | 2018-03-17 03:30 | NUR ---
NURSE NOTES: House keeper saw that patient hit the edge of bathroom door. Noted small laceration on middle of forehead and bleeding. Patient keep wandering arce way. Reoriented. Put the dry gauze dressing on forehead but patient keep took off. Patient confused and agitated.
[2018-03-17 04:00] VITALS: BP 149/104
--- NOTE | 2018-03-17 04:00 | NUR ---
NURSE NOTES: Bleeding stopped. Moved to 401-2 for closely monitor. Notified primer supervisor and left message to Dr. Gomez.
--- NOTE | 2018-03-17 05:13 | NUR ---
NURSE NOTES: Call and left message to Dr. Melgar regarding HR 131. Patient took Zyprexa 03/16/2018 2100. Since that increased HR. Waiting a call back.
--- NOTE | 2018-03-17 07:00 | NUR ---
NURSE NOTES: Obtained sitter, neuro check, notify Dr. Melgar order from Dr. Gomez.
[2018-03-17 07:05] LABS: ANION GAP 6 mmol/L (5-15); CALCIUM 9.6 MG/DL (8.5-10.1); CARBON DIOXIDE 31 MMOL/L (21-32); CHLORIDE 105 MMOL/L (98-107); CREATININE 1.1 MG/DL (0.55-1.30); POTASSIUM 3.8 MMOL/L (3.5-5.1); SODIUM 142 MMOL/L (136-145)
--- NOTE | 2018-03-17 07:10 | NUR ---
NURSE NOTES: Call and left message to Dr. Melgar regarding patient's agitation and increased heart rate.
[2018-03-17 07:11] LABS: HEMATOCRIT 45.3 % (42.0-52.0); HEMOGLOBIN 14.4 G/DL (14.2-18.0); MEAN CORPUSCULAR VOLUME 82 FL (80-99); PLATELET COUNT 247 K/UL (150-450); RED BLOOD COUNT 5.54 M/UL (4.70-6.10); RED CELL DISTRIBUTION WIDTH 16.8 % (11.6-14.8); WHITE BLOOD COUNT 11.4 K/UL (4.8-10.8)
[2018-03-17 07:19] LABS: BLOOD UREA NITROGEN 12 mg/dL (7-18)
--- NOTE | 2018-03-17 07:24 | NUR ---
NURSE NOTES: Patient received in stable condition. Patient is confused and ambulating, needs re-orientation. No s/s of respiratory distress, no s/s of pain observed. Bed alarm is on, will continue to monitor.
--- NOTE | 2018-03-17 07:24 | NUR ---
HAND-OFF: Report given to Christel OLIVO.
[2018-03-17 07:44] VITALS: BP 123/79
[2018-03-17] MEDS: Docusate 100mg cap ORAL SCH (08:01)
[2018-03-17] MEDS: Ascorbic Acid 500mg tab ORAL SCH (08:02)
[2018-03-17] MEDS: Milk of Magnesia 30ml Ud ORAL SCH (08:02)
[2018-03-17 08:09] LABS: % IRON SATURATION 26 % (15-50); IRON 56 ug/dL (50-175); TOTAL IRON BINDING CAPACITY 213 ug/dL (250-450)
[2018-03-17 08:25] LABS: FERRITIN 135 NG/ML (8-388)
[2018-03-17 12:00] VITALS: BP 126/92
[2018-03-17] MEDS ORDERED: LORazepam 1mg tab ORAL PRN (12:30)
[2018-03-17] MEDS ORDERED: Haloperidol 5mg/ml Inj IM PRN (12:30)
--- NOTE | 2018-03-17 12:39 | General Progress Note ---
Assessment/Plan Problem List: (1) Acute metabolic encephalopathy ICD Codes: G93.41 - Metabolic encephalopathy SNOMED: 44647536, 741650228 (2) Failure to thrive in adult ICD Codes: R62.7 - Adult failure to thrive SNOMED: 931531601 (3) Schizophrenia ICD Codes: F20.9 - Schizophrenia, unspecified SNOMED: 89731398 Assessment/Plan zyprexa was given at outside facility zyprexa 5mg po bid the pt lacks capacity to leave ama haldol IM prn Ativan prn dc sitter Subjective Neurologic/Psychiatric: Reports: anxiety, depressed, emotional problems Allergies: Coded Allergies: No Known Allergies (Unverified , 06/04/15) Subjective the pt was wandering in his room last night he refused all meds but zyprexa he bumped his head onto the toilet door. Objective Last 24 Hour Vital Signs Date Time Temp Pulse Resp B/P (MAP) Pulse Ox O2 Delivery O2 Flow Rate FiO2 03/17/18 12:00 98.1 92 20 126/92 (103) 97 03/17/18 08:52 Room Air 03/17/18 08:02 98 123/79 03/17/18 07:44 97.7 98 20 123/79 (94) 95 03/17/18 04:00 131 18 149/104 (119) 03/17/18 00:00 98.1 101 18 153/100 (117) 95 03/16/18 21:00 Room Air 03/16/18 20:00 97.5 71 19 141/70 (93) 95 Intake and Output 03/16/18 03/17/18 19:00 07:00 Intake Total 650 ml Balance 650 ml Intake Oral 650 ml IV Total 0 ml # Voids 2 4 Laboratory Tests 03/17/18 05:35: White Blood Count 11.4H, Red Blood Count 5.54, Hemoglobin 14.4, Hematocrit 45.3 , Mean Corpuscular Volume 82, Mean Corpuscular Hemoglobin 26.0L, Mean Corpuscular Hemoglobin Concent 31.8L, Red Cell Distribution Width 16.8H, Platelet Count 247, Mean Platelet Volume 9.5, Neutrophils (%) (Auto) , Lymphocytes (%) (Auto) , Monocytes (%) (Auto) , Eosinophils (%) (Auto) , Basophils (%) (Auto) , Differential Total Cells Counted 100, Neutrophils % ( Manual) 90H, Lymphocytes % (Manual) 2L, Monocytes % (Manual) 6, Eosinophils % ( Manual) 1, Basophils % (Manual) 1, Band Neutrophils 0, Platelet Estimate Adequate, Platelet Morphology Normal, Anisocytosis 1+, Sodium Level 142, Potassium Level 3.8, Chloride Level 105, Carbon Dioxide Level 31, Anion Gap 6, Blood Urea Nitrogen 12, Creatinine 1.1, Estimat Glomerular Filtration Rate > 60 , Glucose Level 105, Calcium Level 9.6, Iron Level 56, Total Iron Binding Capacity 213L, Percent Iron Saturation 26, Unsaturated Iron Binding 157, Ferritin 135 Height (Feet): 5 Height (Inches): 10.00 Weight (Pounds): 199 General Appearance: WD/WN, no apparent distress, alert, confused Andrea Melgar MD Mar 17, 2018 12:39
[2018-03-17] MEDS ORDERED: Haloperidol Decanoate 50mg Inj IM SCH (13:00)
--- NOTE | 2018-03-17 15:27 | GI Progress Note ---
Assessment/Plan Problems: (1) Schizophrenia ICD Codes: F20.9 - Schizophrenia, unspecified SNOMED: 28195689 (2) Acute metabolic encephalopathy ICD Codes: G93.41 - Metabolic encephalopathy SNOMED: 79965161, 994561052 (3) Failure to thrive in adult ICD Codes: R62.7 - Adult failure to thrive SNOMED: 090323523 (4) Psychiatric disorder ICD Codes: F99 - Mental disorder, not otherwise specified SNOMED: 57059411, 097098808 (5) GI bleeding ICD Codes: K92.2 - Gastrointestinal hemorrhage, unspecified SNOMED: 91047948 Status: stable Status Narrative Discussed with Dr. Rivera. Assessment/Plan Patient is refusing all care We will advance diet monitor for any signs of bleeding. anemia work up OB stool r/o GI bleed monitor H&H, prn transfusions bowel regime ppi fu labs will consider endoscopy if urgent Needs psychiatric follow-up The patient was seen and examined at bedside and all new and available data was reviewed in the patients chart. I agree with the above findings, impression and plan. (Patient seen earlier today. Signature stamp does not reflect patient encounter time.). - Neeraj Rivera MD Subjective Gastrointestinal/Abdominal: Reports: no symptoms Objective Last 24 Hour Vital Signs Date Time Temp Pulse Resp B/P (MAP) Pulse Ox O2 Delivery O2 Flow Rate FiO2 03/17/18 12:00 98.1 92 20 126/92 (103) 97 03/17/18 08:52 Room Air 03/17/18 08:02 98 123/79 03/17/18 07:44 97.7 98 20 123/79 (94) 95 03/17/18 04:00 131 18 149/104 (119) 03/17/18 00:00 98.1 101 18 153/100 (117) 95 03/16/18 21:00 Room Air 03/16/18 20:00 97.5 71 19 141/70 (93) 95 Intake and Output 03/16/18 03/17/18 19:00 07:00 Intake Total 650 ml Balance 650 ml Intake Oral 650 ml IV Total 0 ml # Voids 2 4 Laboratory Tests Test 03/17/18 05:35 White Blood Count 11.4 K/UL (4.8-10.8) H Red Blood Count 5.54 M/UL (4.70-6.10) Hemoglobin 14.4 G/DL (14.2-18.0) Hematocrit 45.3 % (42.0-52.0) Mean Corpuscular Volume 82 FL (80-99) Mean Corpuscular Hemoglobin 26.0 PG (27.0-31.0) L Mean Corpuscular Hemoglobin Concent 31.8 G/DL (32.0-36.0) L Red Cell Distribution Width 16.8 % (11.6-14.8) H Platelet Count 247 K/UL (150-450) Mean Platelet Volume 9.5 FL (6.5-10.1) Neutrophils (%) (Auto) % (45.0-75.0) Lymphocytes (%) (Auto) % (20.0-45.0) Monocytes (%) (Auto) % (1.0-10.0) Eosinophils (%) (Auto) % (0.0-3.0) Basophils (%) (Auto) % (0.0-2.0) Differential Total Cells Counted 100 Neutrophils % (Manual) 90 % (45-75) H Lymphocytes % (Manual) 2 % (20-45) L Monocytes % (Manual) 6 % (1-10) Eosinophils % (Manual) 1 % (0-3) Basophils % (Manual) 1 % (0-2) Band Neutrophils 0 % (0-8) Platelet Estimate Adequate Platelet Morphology Normal Anisocytosis 1+ Sodium Level 142 MMOL/L (136-145) Potassium Level 3.8 MMOL/L (3.5-5.1) Chloride Level 105 MMOL/L (98-107) Carbon Dioxide Level 31 MMOL/L (21-32) Anion Gap 6 mmol/L (5-15) Blood Urea Nitrogen 12 mg/dL (7-18) Creatinine 1.1 MG/DL (0.55-1.30) Estimat Glomerular Filtration Rate > 60 mL/min (>60) Glucose Level 105 MG/DL (74-106) Calcium Level 9.6 MG/DL (8.5-10.1) Iron Level 56 ug/dL (50-175) Total Iron Binding Capacity 213 ug/dL (250-450) L Percent Iron Saturation 26 % (15-50) Unsaturated Iron Binding 157 ug/dL (112-346) Ferritin 135 NG/ML (8-388) Height (Feet): 5 Height (Inches): 10.00 Weight (Pounds): 199 General Appearance: WD/WN, no apparent distress, alert Cardiovascular: normal rate Respiratory/Chest: normal breath sounds, no respiratory distress Abdominal Exam: normal bowel sounds, non tender, soft Extremities: normal range of motion, non-tender Ruby Ahn NP Mar 17, 2018 15:26
--- NOTE | 2018-03-17 15:49 | General Progress Note ---
Assessment/Plan Assessment/Plan Assessment/Recommendations # Anemia of chronic disease (or of iron deficiency) due to underlying chronic medical issues, multifactorial -->Anemia workup has been reviewed, ferritin 135 -->No evidence of hemolysis is noted, peripheral smear has been reviewed. -->Hgb goal >7. Transfuse prn. -->Epogen or iron at this time is not particularly indicated -->Medications have been reviewed # Failure to thrive in adult, Patient is refusing all care --> We will advance diet --> psych consult appreciated # GI bleeding, monitor for any signs of bleeding -->OB stool r/o GI bleed -->bowel regime -->will consider endoscopy if urgent -->appreciate GI recs # Psychiatric disorder -->needs psychiatric follow-up The timing of this note does not necessarily reflect the time of the patient was seen. Greatly appreciate consultation! Subjective ROS Limited/Unobtainable: Yes Allergies: Coded Allergies: No Known Allergies (Unverified , 06/04/15) Subjective 03/17: seen by bedside, awake, confused, pt was reported to be wandering in his room last night, he refused all meds and care. psychiatric follow-up Objective Last 24 Hour Vital Signs Date Time Temp Pulse Resp B/P (MAP) Pulse Ox O2 Delivery O2 Flow Rate FiO2 03/17/18 12:00 98.1 92 20 126/92 (103) 97 03/17/18 08:52 Room Air 03/17/18 08:02 98 123/79 03/17/18 07:44 97.7 98 20 123/79 (94) 95 03/17/18 04:00 131 18 149/104 (119) 03/17/18 00:00 98.1 101 18 153/100 (117) 95 03/16/18 21:00 Room Air 03/16/18 20:00 97.5 71 19 141/70 (93) 95 Intake and Output 03/16/18 03/17/18 19:00 07:00 Intake Total 650 ml Balance 650 ml Intake Oral 650 ml IV Total 0 ml # Voids 2 4 Laboratory Tests 03/17/18 05:35: White Blood Count 11.4H, Red Blood Count 5.54, Hemoglobin 14.4, Hematocrit 45.3 , Mean Corpuscular Volume 82, Mean Corpuscular Hemoglobin 26.0L, Mean Corpuscular Hemoglobin Concent 31.8L, Red Cell Distribution Width 16.8H, Platelet Count 247, Mean Platelet Volume 9.5, Neutrophils (%) (Auto) , Lymphocytes (%) (Auto) , Monocytes (%) (Auto) , Eosinophils (%) (Auto) , Basophils (%) (Auto) , Differential Total Cells Counted 100, Neutrophils % ( Manual) 90H, Lymphocytes % (Manual) 2L, Monocytes % (Manual) 6, Eosinophils % ( Manual) 1, Basophils % (Manual) 1, Band Neutrophils 0, Platelet Estimate Adequate, Platelet Morphology Normal, Anisocytosis 1+, Sodium Level 142, Potassium Level 3.8, Chloride Level 105, Carbon Dioxide Level 31, Anion Gap 6, Blood Urea Nitrogen 12, Creatinine 1.1, Estimat Glomerular Filtration Rate > 60 , Glucose Level 105, Calcium Level 9.6, Iron Level 56, Total Iron Binding Capacity 213L, Percent Iron Saturation 26, Unsaturated Iron Binding 157, Ferritin 135 Height (Feet): 5 Height (Inches): 10.00 Weight (Pounds): 199 Objective General Appearance: well appearing, no apparent distress, alert Head: normocephalic EENT: PERRL/EOMI, normal ENT inspection Neck: supple Respiratory: normal breath sounds, no respiratory distress Cardiovascular: normal rate Gastrointestinal: normal inspection, non tender, soft, normal bowel sounds, non -distended Rectal: deferred Genitourinary: deferred Musculoskeletal: normal inspection, back normal Neurologic: normal inspection, confused, responsive Psychiatric: normal inspection, judgement/insight normal, memory normal Michael Perdomo MD Mar 17, 2018 15:49
--- NOTE | 2018-03-17 19:27 | NUR ---
HAND-OFF: Report given to Leny VALENCIA.
--- NOTE | 2018-03-17 19:30 | NUR ---
NURSE NOTES: RECEIVED PATIENT LYING IN BED AWAKE, WEARING STREET CLOTHES, REFUSING TO WEAR HOSPITAL GOWN/SOCKS- STERI STRIPS INTACT TO MID FOREHEAD. NO IV ACCESS, MD AWARE. CONFUSED, ORIENTED TO PERSON/PLACE, REALITY ORIENTATION PROVIDED DURING ASSESSMENT, DENIES PAIN. NO SIGNS AND SYMPTOMS OF ACUTE CARDIO RESPIRATORY DISTRESS/SHORTNESS OF BREATH, DENIES CHEST PAIN. NO REPORT OF GI DISCOMFORT, NO N/V/D-STOOL SPECIMEN ORDERED X2 TO RULE OUT GI BLEED, SPECIMEN IN PLACE FOR COLLECTION, PATIENT AWARE. SIDE RAILS UP X3/BED IN LOWEST POSITION FOR SAFETY. CALL LIGHT WITHIN REACH. BED ALARM ACTIVATED FOR PATIENT SAFETY. NAD.
--- NOTE | 2018-03-17 20:00 | NUR ---
NURSE NOTES: NON COMPLIANT WITH PLAN OF CARE, REFUSE VITALS-
[2018-03-17] MEDS: Tamsulosin 0.4mg cap ORAL SCH (20:51)
--- NOTE | 2018-03-17 23:17 | General Progress Note ---
Assessment/Plan Problem List: (1) GI bleeding ICD Codes: K92.2 - Gastrointestinal hemorrhage, unspecified SNOMED: 25963207 (2) Psychiatric disorder ICD Codes: F99 - Mental disorder, not otherwise specified SNOMED: 76789983, 578235915 (3) Failure to thrive in adult ICD Codes: R62.7 - Adult failure to thrive SNOMED: 882349796 (4) Schizophrenia ICD Codes: F20.9 - Schizophrenia, unspecified SNOMED: 96934396 Status: stable, progressing Assessment/Plan gi bleed confused hit his head trying to get up ordered 1:1 sitter for safety afebrile agitated psychosis Subjective ROS Limited/Unobtainable: Yes Allergies: Coded Allergies: No Known Allergies (Unverified , 06/04/15) Objective Last 24 Hour Vital Signs Date Time Temp Pulse Resp B/P (MAP) Pulse Ox O2 Delivery O2 Flow Rate FiO2 03/17/18 12:00 98.1 92 20 126/92 (103) 97 03/17/18 08:52 Room Air 03/17/18 08:02 98 123/79 03/17/18 07:44 97.7 98 20 123/79 (94) 95 03/17/18 04:00 131 18 149/104 (119) 03/17/18 00:00 98.1 101 18 153/100 (117) 95 Intake and Output 03/16/18 03/17/18 19:00 07:00 Intake Total 650 ml Balance 650 ml Intake Oral 650 ml IV Total 0 ml # Voids 2 4 Laboratory Tests 03/17/18 05:35: White Blood Count 11.4H, Red Blood Count 5.54, Hemoglobin 14.4, Hematocrit 45.3 , Mean Corpuscular Volume 82, Mean Corpuscular Hemoglobin 26.0L, Mean Corpuscular Hemoglobin Concent 31.8L, Red Cell Distribution Width 16.8H, Platelet Count 247, Mean Platelet Volume 9.5, Neutrophils (%) (Auto) , Lymphocytes (%) (Auto) , Monocytes (%) (Auto) , Eosinophils (%) (Auto) , Basophils (%) (Auto) , Differential Total Cells Counted 100, Neutrophils % ( Manual) 90H, Lymphocytes % (Manual) 2L, Monocytes % (Manual) 6, Eosinophils % ( Manual) 1, Basophils % (Manual) 1, Band Neutrophils 0, Platelet Estimate Adequate, Platelet Morphology Normal, Anisocytosis 1+, Sodium Level 142, Potassium Level 3.8, Chloride Level 105, Carbon Dioxide Level 31, Anion Gap 6, Blood Urea Nitrogen 12, Creatinine 1.1, Estimat Glomerular Filtration Rate > 60 , Glucose Level 105, Calcium Level 9.6, Iron Level 56, Total Iron Binding Capacity 213L, Percent Iron Saturation 26, Unsaturated Iron Binding 157, Ferritin 135 Height (Feet): 5 Height (Inches): 10.00 Weight (Pounds): 199 Neck: supple Cardiovascular: normal rate Respiratory/Chest: lungs clear Abdomen: soft Sabino Gomez MD Mar 17, 2018 23:16
--- NOTE | 2018-03-18 | NUR ---
NURSE NOTES: NON COMPLIANT WITH PLAN OF CARE, REFUSED MIDNIGHT VITALS-
[2018-03-18 04:00] VITALS: BP 131/87
--- NOTE | 2018-03-18 06:24 | NUR ---
NURSE NOTES: RESTED WELL, NON COMPLIANT WITH PLAN OF CARE, REFUSED AM CARE. SAFETY MAINTAINED. NAD.
--- NOTE | 2018-03-18 07:30 | NUR ---
HAND-OFF: Report given to PALLAVI CASTILLO.
--- NOTE | 2018-03-18 07:47 | NUR ---
NURSE NOTES: Received patient asleep, easily arousable. No SOB. Bed in lowest position. Call light made within reach. Noted with steri strips on head. Will cont to monitor.
[2018-03-18 08:00] VITALS: BP 140/85
[2018-03-18] MEDS: Milk of Magnesia 30ml Ud ORAL SCH (08:54)
[2018-03-18] MEDS: Ascorbic Acid 500mg tab ORAL SCH (08:54)
[2018-03-18] MEDS: Docusate 100mg cap ORAL SCH (08:54)
[2018-03-18 12:00] VITALS: BP 135/86
--- NOTE | 2018-03-18 12:20 | NUR ---
CASE MANAGEMENT: REVIEW SI: GI BLEED . T 98.1 HR 92 RR 20 BP 126/92 SAT 97% ROOM AIR IS: NS IVF @ 65ML/HR PROTONIX PO QD MED/SURG STATUS DCP: PATIENT IS FROM [facility]
--- NOTE | 2018-03-18 14:09 | NUR ---
NURSE NOTES: Patient still refusing IV. Dr. Gomez made aware. Risk and benefits explained.
[2018-03-18 15:56] VITALS: BP 119/69
--- NOTE | 2018-03-18 16:10 | NUR ---
HAND-OFF: Report given to PLALAVI Juan.
--- NOTE | 2018-03-18 16:10 | NUR ---
NURSE NOTES: Received pt from PALLAVI BELL. Pt is confused and orient x2. no SOB or acute respiratory distress noted. pt has no iv access. MD is aware. all needs attended, bed is locked and is in the lowest position. call light within easy reach. will continue to monitor.will continue to monitor.
--- NOTE | 2018-03-18 16:34 | GI Progress Note ---
Assessment/Plan Problems: (1) Schizophrenia ICD Codes: F20.9 - Schizophrenia, unspecified SNOMED: 58711807 (2) Acute metabolic encephalopathy ICD Codes: G93.41 - Metabolic encephalopathy SNOMED: 74141645, 198381449 (3) Failure to thrive in adult ICD Codes: R62.7 - Adult failure to thrive SNOMED: 602305451 (4) Psychiatric disorder ICD Codes: F99 - Mental disorder, not otherwise specified SNOMED: 14381209, 907231115 (5) GI bleeding ICD Codes: K92.2 - Gastrointestinal hemorrhage, unspecified SNOMED: 62998429 Status: stable Status Narrative Discussed with Dr. Rivera Assessment/Plan Patient is refusing all care We will advance diet monitor for any signs of bleeding. anemia work up OB stool r/o GI bleed monitor H&H, prn transfusions bowel regime, magnesium citrate x1 ppi fu labs will consider endoscopy if urgent Needs psychiatric follow-up The patient was seen and examined at bedside and all new and available data was reviewed in the patients chart. I agree with the above findings, impression and plan. (Patient seen earlier today. Signature stamp does not reflect patient encounter time.). - Neeraj Rivera MD Subjective Gastrointestinal/Abdominal: Reports: no symptoms Objective Last 24 Hour Vital Signs Date Time Temp Pulse Resp B/P (MAP) Pulse Ox O2 Delivery O2 Flow Rate FiO2 03/18/18 15:56 97.7 100 18 119/69 (86) 95 03/18/18 12:00 98.4 76 20 135/86 (102) 95 03/18/18 09:00 Room Air 03/18/18 08:54 85 140/85 03/18/18 08:00 97.5 85 20 140/85 (103) 95 03/18/18 04:00 97.3 89 20 131/87 (102) 99 03/17/18 21:00 Room Air Intake and Output 03/17/18 03/18/18 19:00 07:00 Intake Total 1390 ml 480 ml Balance 1390 ml 480 ml Intake Oral 1390 ml 480 ml # Voids 4 2 Height (Feet): 5 Height (Inches): 10.00 Weight (Pounds): 199 General Appearance: WD/WN, no apparent distress, alert Cardiovascular: normal rate Respiratory/Chest: normal breath sounds, no respiratory distress Abdominal Exam: normal bowel sounds, non tender, soft Extremities: normal range of motion, non-tender Ruby Ahn NP Mar 18, 2018 16:34
[2018-03-18] MEDS: Magnesium Citrate Liq Btl ORAL ONE ×2 (17:07→17:53)
--- NOTE | 2018-03-18 17:53 | NUR ---
NURSE NOTES: PT REFUSED CITRATE OF MAGNESIA, IT'S WASTED.
--- NOTE | 2018-03-18 18:12 | General Progress Note ---
Assessment/Plan Problem List: (1) GI bleeding ICD Codes: K92.2 - Gastrointestinal hemorrhage, unspecified SNOMED: 34973183 (2) Psychiatric disorder ICD Codes: F99 - Mental disorder, not otherwise specified SNOMED: 20771262, 826196358 (3) Failure to thrive in adult ICD Codes: R62.7 - Adult failure to thrive SNOMED: 574629751 (4) Schizophrenia ICD Codes: F20.9 - Schizophrenia, unspecified SNOMED: 54002682 Status: progressing Assessment/Plan no gi bleed today confused hit his head trying to get up reviewed chart and labs agitated psychosis Subjective ROS Limited/Unobtainable: Yes Allergies: Coded Allergies: No Known Allergies (Unverified , 06/04/15) Objective Last 24 Hour Vital Signs Date Time Temp Pulse Resp B/P (MAP) Pulse Ox O2 Delivery O2 Flow Rate FiO2 03/18/18 15:56 97.7 100 18 119/69 (86) 95 03/18/18 12:00 98.4 76 20 135/86 (102) 95 03/18/18 09:00 Room Air 03/18/18 08:54 85 140/85 03/18/18 08:00 97.5 85 20 140/85 (103) 95 03/18/18 04:00 97.3 89 20 131/87 (102) 99 03/17/18 21:00 Room Air Intake and Output 03/17/18 03/18/18 19:00 07:00 Intake Total 1390 ml 480 ml Balance 1390 ml 480 ml Intake Oral 1390 ml 480 ml # Voids 4 2 Height (Feet): 5 Height (Inches): 10.00 Weight (Pounds): 199 Cardiovascular: normal rate Respiratory/Chest: lungs clear Abdomen: soft Sabino Gomez MD Mar 18, 2018 18:12
--- NOTE | 2018-03-18 19:20 | NUR ---
HAND-OFF: Report given to PALLAVI FLOREZ.
--- NOTE | 2018-03-18 19:22 | NUR ---
NURSE NOTES: Received report and patient from PALLAVI Juan. Patient awake, sitting in bed. Refusing hospital gown, in street clothes. On room air, no signs of distress or labored breathing. No IV access, MD aware. Bed in lowest position with call light in reach. Will continue with plan of care.
[2018-03-18 20:00] VITALS: BP 143/78
[2018-03-18] MEDS: Tamsulosin 0.4mg cap ORAL SCH (21:00)
--- NOTE | 2018-03-18 22:06 | General Progress Note ---
Assessment/Plan Problem List: (1) Acute metabolic encephalopathy ICD Codes: G93.41 - Metabolic encephalopathy SNOMED: 20948050, 613342016 (2) Failure to thrive in adult ICD Codes: R62.7 - Adult failure to thrive SNOMED: 831482870 (3) Schizophrenia ICD Codes: F20.9 - Schizophrenia, unspecified SNOMED: 29585813 Status: stable, progressing Assessment/Plan zyprexa was given at outside facility zyprexa 5mg po bid haldol IM prn Ativan prn Subjective Neurologic/Psychiatric: Reports: anxiety, depressed, emotional problems Allergies: Coded Allergies: No Known Allergies (Unverified , 06/04/15) Subjective calmer more alert wants to go home Objective Last 24 Hour Vital Signs Date Time Temp Pulse Resp B/P (MAP) Pulse Ox O2 Delivery O2 Flow Rate FiO2 03/18/18 20:00 99.0 84 19 143/78 (99) 93 03/18/18 15:56 97.7 100 18 119/69 (86) 95 03/18/18 12:00 98.4 76 20 135/86 (102) 95 03/18/18 09:00 Room Air 03/18/18 08:54 85 140/85 03/18/18 08:00 97.5 85 20 140/85 (103) 95 03/18/18 04:00 97.3 89 20 131/87 (102) 99 Intake and Output 03/17/18 03/18/18 19:00 07:00 Intake Total 1390 ml 480 ml Balance 1390 ml 480 ml Intake Oral 1390 ml 480 ml # Voids 4 2 Height (Feet): 5 Height (Inches): 10.00 Weight (Pounds): 199 General Appearance: WD/WN, no apparent distress, alert, confused Andrea Melgar MD Mar 18, 2018 22:06
[2018-03-19] VITALS: BP 148/93
--- NOTE | 2018-03-19 07:48 | NUR ---
HAND-OFF: Report given to Thea Carranza RN.
--- NOTE | 2018-03-19 07:50 | NUR ---
NURSE NOTES: Received patient in bed, awake, refused wearing hospital gown, in street clothes. On room air, No acute distress noted, No IV access, MD aware, Bed in lowest position and locked, Call light and needs within reach. Will continue to monitor.
[2018-03-19] MEDS: Ascorbic Acid 500mg tab ORAL SCH (09:00)
[2018-03-19] MEDS: Milk of Magnesia 30ml Ud ORAL SCH (09:00)
[2018-03-19] MEDS: Docusate 100mg cap ORAL SCH (09:00)
--- NOTE | 2018-03-19 09:56 | NUR ---
NURSE NOTES: Patient refused All 9AM due medication, explained benefits and risks, but patient still refused.
--- NOTE | 2018-03-19 11:44 | NUR ---
NURSE NOTES: Patient refused blood sugar check @1130, explained risk and benefit, but, patient still refused, No s/s of hypo/hyperglycemia noted, frequent visual check done, Will continue to monitor.
--- NOTE | 2018-03-19 16:36 | NUR ---
NURSE NOTES: Patient refused blood sugar check @1630, explained risk and benefit, but, patient still refused, No s/s of hypo/hyperglycemia noted, Will continue to monitor.
--- NOTE | 2018-03-19 16:36 | GI Progress Note ---
Assessment/Plan Problems: (1) Schizophrenia ICD Codes: F20.9 - Schizophrenia, unspecified SNOMED: 92400262 (2) Acute metabolic encephalopathy ICD Codes: G93.41 - Metabolic encephalopathy SNOMED: 26677016, 529534804 (3) Failure to thrive in adult ICD Codes: R62.7 - Adult failure to thrive SNOMED: 457038758 (4) Psychiatric disorder ICD Codes: F99 - Mental disorder, not otherwise specified SNOMED: 46786513, 652274036 (5) GI bleeding ICD Codes: K92.2 - Gastrointestinal hemorrhage, unspecified SNOMED: 17020159 Status: stable, unchanged Status Narrative Discussed with Dr. Rivera. Assessment/Plan Patient is refusing all care We will advance diet monitor for any signs of bleeding. anemia work up OB stool r/o GI bleed monitor H&H, prn transfusions bowel regime, magnesium citrate x1 ppi fu labs will consider endoscopy if urgent Needs psychiatric follow-up The patient was seen and examined at bedside and all new and available data was reviewed in the patients chart. I agree with the above findings, impression and plan. (Patient seen earlier today. Signature stamp does not reflect patient encounter time.). - Neeraj Rivera MD Subjective Gastrointestinal/Abdominal: Reports: no symptoms Objective Last 24 Hour Vital Signs Date Time Temp Pulse Resp B/P (MAP) Pulse Ox O2 Delivery O2 Flow Rate FiO2 03/19/18 09:00 Room Air 03/19/18 00:00 98.2 76 18 148/93 (111) 93 03/18/18 21:00 Room Air 03/18/18 20:00 99.0 84 19 143/78 (99) 93 Intake and Output 03/18/18 03/19/18 19:00 07:00 Intake Total 930 ml Balance 930 ml Intake Oral 930 ml # Voids 4 2 Height (Feet): 5 Height (Inches): 10.00 Weight (Pounds): 199 General Appearance: WD/WN, no apparent distress, alert Cardiovascular: normal rate Respiratory/Chest: normal breath sounds, no respiratory distress Abdominal Exam: normal bowel sounds, non tender, soft Extremities: normal range of motion, non-tender Ruby Ahn [employer] Mar 19, 2018 16:36
--- NOTE | 2018-03-19 18:10 | NUR ---
NURSE NOTES: Patient refused to take zyprexa x3. Patient said " I have never took that medication.I just want to watch TV. "RN reeducated on medication and explained risks and benefits. Patient stated that " I just want to watch TV."
--- NOTE | 2018-03-19 18:13 | NUR ---
NURSE NOTES: Rn informed Dr. Gomez and Dr. Melgar of refusal of medication.
--- NOTE | 2018-03-19 19:36 | NUR ---
HAND-OFF: Report given to Cydney.
--- NOTE | 2018-03-19 19:55 | NUR ---
NURSE NOTES: Received report from Thea Carranza RN and PALLAVI Goodson. Patient A&Ox2. On room air, no signs of distress or labored breathing. Bed in lowest position with call light in reach. Refusing care. Will continue to monitor.
[2018-03-19] MEDS: Tamsulosin 0.4mg cap ORAL SCH (20:11)
--- NOTE | 2018-03-19 21:17 | General Progress Note ---
Assessment/Plan Problem List: (1) GI bleeding ICD Codes: K92.2 - Gastrointestinal hemorrhage, unspecified SNOMED: 50650133 (2) Psychiatric disorder ICD Codes: F99 - Mental disorder, not otherwise specified SNOMED: 90169138, 285560892 (3) Failure to thrive in adult ICD Codes: R62.7 - Adult failure to thrive SNOMED: 908380113 (4) Schizophrenia ICD Codes: F20.9 - Schizophrenia, unspecified SNOMED: 41609824 Status: progressing Assessment/Plan no gi bleed today dc planning check h/h Subjective ROS Limited/Unobtainable: Yes Cardiovascular: Reports: no symptoms Allergies: Coded Allergies: No Known Allergies (Unverified , 06/04/15) Objective Last 24 Hour Vital Signs Date Time Temp Pulse Resp B/P (MAP) Pulse Ox O2 Delivery O2 Flow Rate FiO2 03/19/18 09:00 Room Air 03/19/18 00:00 98.2 76 18 148/93 (111) 93 Intake and Output 03/18/18 03/19/18 19:00 07:00 Intake Total 930 ml Balance 930 ml Intake Oral 930 ml # Voids 4 2 Height (Feet): 5 Height (Inches): 10.00 Weight (Pounds): 199 Neck: supple Cardiovascular: normal rate Respiratory/Chest: lungs clear Abdomen: soft Sabino Gomez MD Mar 19, 2018 21:17
--- NOTE | 2018-03-19 21:28 | General Progress Note ---
Assessment/Plan Problem List: (1) Acute metabolic encephalopathy ICD Codes: G93.41 - Metabolic encephalopathy SNOMED: 63509719, 671154814 (2) Failure to thrive in adult ICD Codes: R62.7 - Adult failure to thrive SNOMED: 732816690 (3) Schizophrenia ICD Codes: F20.9 - Schizophrenia, unspecified SNOMED: 69122997 Assessment/Plan zyprexa was given at outside facility zyprexa 10mg po bid haldol IM prn Ativan prn Subjective Neurologic/Psychiatric: Reports: anxiety, depressed, emotional problems Allergies: Coded Allergies: No Known Allergies (Unverified , 06/04/15) Subjective calmer more alert noncompliant Objective Last 24 Hour Vital Signs Date Time Temp Pulse Resp B/P (MAP) Pulse Ox O2 Delivery O2 Flow Rate FiO2 03/19/18 09:00 Room Air 03/19/18 00:00 98.2 76 18 148/93 (111) 93 Intake and Output 03/18/18 03/19/18 19:00 07:00 Intake Total 930 ml Balance 930 ml Intake Oral 930 ml # Voids 4 2 Height (Feet): 5 Height (Inches): 10.00 Weight (Pounds): 199 General Appearance: alert, confused, agitated Andrea Melgar MD Mar 19, 2018 21:28
--- NOTE | 2018-03-20 07:55 | NUR ---
NURSE NOTES: Patient received in stable condition, sleeping in bed. Breathing unlabored on room air. No s/s of respiratory distress or pain observed. Bed locked in lowest position. Call light within reach, will continue to monitor.
[2018-03-20 08:00] VITALS: BP 139/91
--- NOTE | 2018-03-20 08:09 | NUR ---
HAND-OFF: Report given to PALLAVI Kearnye.
[2018-03-20] MEDS: Ascorbic Acid 500mg tab ORAL SCH (08:25)
[2018-03-20] MEDS: Docusate 100mg cap ORAL SCH (08:25)
[2018-03-20] MEDS: Milk of Magnesia 30ml Ud ORAL SCH (09:05)
--- NOTE | 2018-03-20 10:20 | General Progress Note ---
Assessment/Plan Problem List: (1) Acute metabolic encephalopathy ICD Codes: G93.41 - Metabolic encephalopathy SNOMED: 56517350, 783061602 (2) Failure to thrive in adult ICD Codes: R62.7 - Adult failure to thrive SNOMED: 505923755 (3) Schizophrenia ICD Codes: F20.9 - Schizophrenia, unspecified SNOMED: 00828004 Assessment/Plan zyprexa 10mg po bid haldol IM prn Ativan prn Subjective Neurologic/Psychiatric: Reports: anxiety, depressed, emotional problems Allergies: Coded Allergies: No Known Allergies (Unverified , 06/04/15) Subjective calmer no agitation noncompliant with meds at time Objective Last 24 Hour Vital Signs Date Time Temp Pulse Resp B/P (MAP) Pulse Ox O2 Delivery O2 Flow Rate FiO2 03/20/18 09:00 Room Air 03/20/18 08:25 76 148/93 03/20/18 08:00 98.5 79 18 139/91 (107) 97 03/19/18 21:00 Room Air Intake and Output 03/19/18 03/20/18 18:59 06:59 Intake Total 700 ml Balance 700 ml Intake Oral 700 ml # Voids 5 1 Height (Feet): 5 Height (Inches): 10.00 Weight (Pounds): 199 General Appearance: alert, confused, agitated Andrea Melgar MD Mar 20, 2018 10:20
--- NOTE | 2018-03-20 10:35 | GI Progress Note ---
Assessment/Plan Problems: (1) Schizophrenia ICD Codes: F20.9 - Schizophrenia, unspecified SNOMED: 39615940 (2) Acute metabolic encephalopathy ICD Codes: G93.41 - Metabolic encephalopathy SNOMED: 55193497, 605025275 (3) Failure to thrive in adult ICD Codes: R62.7 - Adult failure to thrive SNOMED: 560531081 (4) Psychiatric disorder ICD Codes: F99 - Mental disorder, not otherwise specified SNOMED: 78582485, 061480199 (5) GI bleeding ICD Codes: K92.2 - Gastrointestinal hemorrhage, unspecified SNOMED: 65649623 Status: stable Status Narrative Discussed with Dr. Rivera Assessment/Plan Patient is refusing all care We will advance diet monitor for any signs of bleeding. anemia work up OB stool r/o GI bleed monitor H&H, prn transfusions bowel regime, magnesium citrate x1 ppi fu labs will consider endoscopy if urgent Needs psychiatric follow-up The patient was seen and examined at bedside and all new and available data was reviewed in the patients chart. I agree with the above findings, impression and plan. (Patient seen earlier today. Signature stamp does not reflect patient encounter time.). - Neeraj Rivera MD Subjective Gastrointestinal/Abdominal: Reports: no symptoms Objective Last 24 Hour Vital Signs Date Time Temp Pulse Resp B/P (MAP) Pulse Ox O2 Delivery O2 Flow Rate FiO2 03/20/18 09:00 Room Air 03/20/18 08:25 76 148/93 03/20/18 08:00 98.5 79 18 139/91 (107) 97 03/19/18 21:00 Room Air Intake and Output 03/19/18 03/20/18 18:59 06:59 Intake Total 700 ml Balance 700 ml Intake Oral 700 ml # Voids 5 1 Height (Feet): 5 Height (Inches): 10.00 Weight (Pounds): 199 General Appearance: WD/WN, no apparent distress, alert Cardiovascular: normal rate Respiratory/Chest: normal breath sounds, no respiratory distress Abdominal Exam: normal bowel sounds, non tender, soft Extremities: normal range of motion, non-tender Ruby Ahn [employer] Mar 20, 2018 10:35
--- NOTE | 2018-03-20 11:15 | NUR ---
Social Service Note DEMARIO faxed referral to Irline at [facility] [phone] (p) [phone] (f). Patient accepted under longterm care room 400-C. Nurse to call report prior to transportation. DEMARIO notified patient's brother Heber Dobson [phone] who is in agreement with dc plan. Patient will dc via ambulance [facility] [phone] moss picker [phone].
[2018-03-20 12:00] VITALS: BP 112/78
--- NOTE | 2018-03-20 13:18 | NUR ---
NURSE NOTES: Patient discharged to [facility] accompanied by ambulance personnel. Patient noted to be in stable condition, responding appropriately, breathing unlabored on room air. Belongings worn by the patient, confirmed with belongings sheet. No IV site to be removed. Report given to Brittani RN at [facility]. Patient verbalized understanding that he is returning to [facility]. Discharge package given to ambulance personnel.
--- NOTE | 2018-03-20 22:37 | General Progress Note ---
Assessment/Plan Assessment/Plan Assessment/Recommendations # Anemia of chronic disease (or of iron deficiency) due to underlying chronic medical issues, multifactorial -->Anemia workup has been reviewed, ferritin 135 -->No evidence of hemolysis is noted, peripheral smear has been reviewed. -->Hgb goal >7. Transfuse prn. -->Epogen or iron at this time is not particularly indicated -->Medications have been reviewed # Failure to thrive in adult, Patient is refusing all care --> We will advance diet --> psych consult appreciated # GI bleeding, monitor for any signs of bleeding -->OB stool r/o GI bleed -->bowel regime -->will consider endoscopy if urgent -->appreciate GI recs # Psychiatric disorder -->needs psychiatric follow-up The timing of this note does not necessarily reflect the time of the patient was seen. Greatly appreciate consultation! Subjective Constitutional: Denies: no symptoms, chills, diaphoresis, fever, malaise, weakness, other HEENT: Denies: no symptoms, eye pain, blurred vision, tearing, double vision, ear pain, ear discharge, nose pain, nose congestion, throat pain, throat swelling, mouth pain, mouth swelling, other Respiratory: Denies: no symptoms, cough, orthopnea, shortness of breath, SOB with excertion, SOB at rest, sputum, stridor, wheezing, other Gastrointestinal/Abdominal: Denies: no symptoms, abdomen distended, abdominal pain, black stools, tarry stools, blood in stool, constipated, diarrhea, difficulty swallowing, nausea, poor appetite, poor fluid intake, rectal bleeding , vomiting, other Genitourinary: Denies: no symptoms, burning, discharge, frequency, flank pain, hematuria, incontinence, pain, urgency, other Neurologic/Psychiatric: Denies: no symptoms, anxiety, depressed, emotional problems, headache, numbness, paresthesia, pre-existing deficit, seizure, tingling, tremors, weakness, other Hematologic/Lymphatic: Denies: no symptoms, anemia, easy bleeding, easy bruising, other Allergies: Coded Allergies: No Known Allergies (Unverified , 06/04/15) Subjective 03/17: seen by bedside, awake, confused, pt was reported to be wandering in his room last night, he refused all meds and care. psychiatric follow-up 03/20: seen by bedside, awake, comfortable, no acute distress. Objective Last 24 Hour Vital Signs Date Time Temp Pulse Resp B/P (MAP) Pulse Ox O2 Delivery O2 Flow Rate FiO2 03/20/18 12:00 98.1 83 18 112/78 (89) 94 03/20/18 09:00 Room Air 03/20/18 08:25 76 148/93 03/20/18 08:00 98.5 79 18 139/91 (107) 97 Intake and Output 03/19/18 03/20/18 19:00 07:00 Intake Total 700 ml Balance 700 ml Intake Oral 700 ml # Voids 5 1 Height (Feet): 5 Height (Inches): 10.00 Weight (Pounds): 199 Objective General Appearance: well appearing, no apparent distress, alert Head: normocephalic EENT: PERRL/EOMI, normal ENT inspection Neck: supple Respiratory: normal breath sounds, no respiratory distress Cardiovascular: normal rate Gastrointestinal: normal inspection, non tender, soft, normal bowel sounds, non -distended Rectal: deferred Genitourinary: deferred Musculoskeletal: normal inspection, back normal Neurologic: normal inspection, confused, responsive Psychiatric: normal inspection, judgement/insight normal, memory normal Michael Perdomo MD Mar 20, 2018 22:37
--- NOTE | 2018-03-21 08:20 | Discharge Summary ---
Discharge Summary Discharge Summary _ . . DATE OF ADMISSION: 03/15/2018 DATE OF DISCHARGE: 03/20/2018 DISCHARGED BY: Dr Gomez REASON FOR ADMISSION: 57 years old male with past medical history of diabetes mellitus, hypertension, was presented to emergency department with complaint of generalized weakness , decreased appetite, weight loss and episode of melena. Patient denied fevers or chills. Patient denied chest pain or shortness of breath. Upon evaluation vital signs were stable. Laboratory workup revealed no leukocytosis, hemoglobin 13.2, hematocrit 41.7 , stable electrolytes and renal parameters. Troponin negative. Urinalysis revealed no evidence of UTI. Patient was admitted for failure to thrive in adult and episode of GI bleeding. CONSULTANTS: GI specialist Dr. Rivera terrazzo layer/oncologist Dr. Perdoom psychiatrist [facility] COURSE: Patient admitted to medical surgical floor. Patient started on IV hydration. Patient initially was kept NPO. GI consult was requested. Patient started on PPI. GI specialist closely followed. Patient was monitored for any signs of bleeding. Anemia workup revealed evidence of anemia of chronic disease due to underlying chronic medical issue, multifactorial. Ferritin 125. Hemoglobin hematocrit were closely monitored with goal to keep hemoglobin above 7. Patient was on iron pills while in the Hospital. No evidence of hemolysis noted. Peripheral smear had been reviewed. Stool for occult blood was not collected in the hospital , should be done as outpatient. Patient was slowly started on diet and was advanced as tolerated. Patient was able to tolerate diet. Bowel regimen instituted. Per GI recommendations, consider endoscopy if urgent. At this time hemoglobin and hematocrit remained stable. No further evidence of bleeding. Prior to discharge from 14.4, hematocrit 45.3. Blood pressure was managed with calcium channel zaire and remained stable. Psychiatrist seen and evaluated patient , and diagnosed patient with acute metabolic encephalopathy and schizophrenia. Psychiatric medication regimen was optimized per psychiatrist . With new psychiatric medications, patient appeared to be calmer, with no agitation. Patient was was stable for discharge to shelter facility. Continue close monitoring for any signs of bleeding and dietary intake in the facility. FINAL DIAGNOSES: Acute metabolic encephalopathy Anemia of chronic disease Episode of GI bleeding/melena resolved Hypertension Schizophrenia DISCHARGE MEDICATIONS: See Medication Reconciliation list. DISCHARGE INSTRUCTIONS: Patient was discharged to the shelter facility. Follow up with medical doctor at the facility. I have been assigned to dictate discharge summary for this account. I was not involved in the patient's management. Ronit Powell NP Mar 21, 2018 08:20
== END 2018-03-20 13:15 | DRG 377 ==
LOC: EDBD 19:53 → EMR 20:26 → 4E 21:04 → EDBEDREQ 22:53 → 4E 03-17 04:12
DX: K92.2 Gastrointestinal hemorrhage, unspecified (principal); G93.41 Metabolic encephalopathy; R62.7 Adult failure to thrive; D63.8 Anemia in other chronic diseases classified elsewhere; Z87.891 Personal history of nicotine dependence; E11.9 Type 2 diabetes mellitus without complications; K21.9 Gastro-esophageal reflux disease without esophagitis; I10 Essential (primary) hypertension; N40.0 Benign prostatic hyperplasia without lower urinary tract symptoms; F20.9 Schizophrenia, unspecified; Z79.4 Long term (current) use of insulin
CPT/HCPCS: 36415; 80048; 80053; 81003; 82728; 82962; 83540; 83550; 83690; 84484; 85007; 85025; 85610; 85730; 86850; 86900; 86901; 99285

== ENCOUNTER 2018-09-10 12:09 | Inpatient (IN) | payer MEDICARE, MEDICAID ==
[~2018-09-10] VITALS: Ht 177.8 cm; Wt 90.3 kg
[~2018-09-10 12:09] MED LIST changes: +AMARYL1 MG ORAL; +COLACE100 MG ORAL; +NORVASC5 MG ORAL; +TAMSULOSIN HCL0.4 MG ORAL; +ZYPREXA5 MG ORAL; +mylanta
[2018-09-10] MEDS ORDERED: Lidocaine 1% 10mg/ml/Epi 0.005mg/ml 30ml vial INJ ONE (12:15)
[2018-09-10] MEDS ORDERED: Tetanus/Diptheria/Pertussis IM ONE (12:15)
--- NOTE | 2018-09-10 12:25 | NUR ---
ED Nurse Note: Patient brought by RA from intermediate due to S/P with right upper head injury with minimal bleeding. Alert and oriented x4, verbally responsive. No SOB. Breathing even and unlabored. Patient has rash on his right dorsal feet.
--- NOTE | 2018-09-10 12:27 | Emergency Room Report ---
History of Present Illness General Chief Complaint: Head Injury Source: Patient, Medical Record Present Illness HPI 67-year-old male presents with mechanical trip and fall, patient hit the back of his head, he denies LOC, he denies any chest pain, shortness of breath, he is a little confused at baseline, he denies any neck pain, patient presents for evaluation. Endorses some sharp posterior head pain, no aggravating or alleviating factors, severity is mild, he describes the pain as sharp. Allergies: Coded Allergies: No Known Allergies (Unverified , 06/04/15) Patient History Past Medical History: see triage record Reviewed Nursing Documentation: PMH: Agreed; PSxH: Agreed Nursing Documentation-PMH Past Medical History: No History, Except For Hx Cardiac Problems: Yes - History of Anemia Hx Hypertension: Yes Hx Diabetes: Yes Hx Cancer: No Hx Gastrointestinal Problems: Yes - GERD Hx Neurological Problems: No - History of Encephalopathy Review of Systems Constitutional: Denies: chills, fever Eye: Denies: blurred vision, double vision ENT: Denies: throat pain, nasal discharge Respiratory: Denies: cough, shortness of breath Cardiovascular: Denies: chest pain, palpitations Gastrointestinal: Denies: abdominal pain, diarrhea, nausea, vomiting Genitourinary: Denies: dysuria, pain Musculoskeletal: Denies: back pain, muscle pain Skin: Denies: rash, lesions Neurological: Reports: headache; Denies: focal weakness Hematologic/Lymphatic: Denies: easy bleeding, easy bruising All Other Systems: negative except mentioned in HPI Physical Exam Vital Signs Date Time Temp Pulse Resp B/P (MAP) Pulse Ox O2 Delivery O2 Flow Rate FiO2 09/10/18 12:13 98.4 86 24 167/98 (121) 94 Room Air Sp02 EP Interpretation: reviewed, normal General Appearance: well appearing, no apparent distress, alert Head: normocephalic, other - Posterior head 3 cm laceration curvilinear Eyes: bilateral eye PERRL, bilateral eye EOMI ENT: uvula midline, moist mucus membranes Neck: supple, thyroid normal, supple/symm/no masses, other - No C-spine tenderness Respiratory: lungs clear, no respiratory distress, no retraction, no accessory muscle use Cardiovascular #1: normal peripheral pulses, regular rate, rhythm, no edema, no gallop, no murmur Gastrointestinal: non tender, soft, no guarding, no rebound Musculoskeletal: normal inspection Neurologic: alert, oriented x3 Psychiatric: mood/affect normal Skin: no rash, warm/dry Procedures Laceration/Wound Repair Laceration/Wound Repair : Consent: Verbal Wound Location: head Wound's Depth, Shape: superficial Wound Length (cm): 3 Wound Explored: clean Irrigated w/ Saline (ccs): 100 Betadine Prep?: Yes Anesthesia: Lidocaine w/ Epi Volume Anesthetic (ccs): 3 Wound Repaired With: loki Number of Sutures: 3 Patient Tolerated: Well Complications: None Medical Decision Making Diagnostic Impression: Primary Impression: Acute head injury Qualified Codes: S09.90XA - Unspecified injury of head, initial encounter Additional Impressions: Concussion Qualified Codes: S06.0X0A - Concussion without loss of consciousness, initial encounter Fall Qualified Codes: W19.XXXA - Unspecified fall, initial encounter ER Course [age]-year-old male presents with mechanical fall laceration to the occiput, patient confused, however able to answer questions, patient will be admitted for observation possible concussive symptoms, CT brain is negative for acute bleed, patient was admitted to Dr. Gomez 2:14pm No C-spine tenderness Laboratory Tests Test 09/10/18 13:04 White Blood Count 11.5 K/UL (4.8-10.8) H Red Blood Count 5.67 M/UL (4.70-6.10) Hemoglobin 15.5 G/DL (14.2-18.0) Hematocrit 48.8 % (42.0-52.0) Mean Corpuscular Volume 86 FL (80-99) Mean Corpuscular Hemoglobin 27.4 PG (27.0-31.0) Mean Corpuscular Hemoglobin Concent 31.9 G/DL (32.0-36.0) L Red Cell Distribution Width 14.0 % (11.6-14.8) Platelet Count 184 K/UL (150-450) Mean Platelet Volume 7.7 FL (6.5-10.1) Neutrophils (%) (Auto) % (45.0-75.0) Lymphocytes (%) (Auto) % (20.0-45.0) Monocytes (%) (Auto) % (1.0-10.0) Eosinophils (%) (Auto) % (0.0-3.0) Basophils (%) (Auto) % (0.0-2.0) Differential Total Cells Counted 100 Neutrophils % (Manual) 87 % (45-75) H Lymphocytes % (Manual) 5 % (20-45) L Monocytes % (Manual) 4 % (1-10) Eosinophils % (Manual) 3 % (0-3) Basophils % (Manual) 0 % (0-2) Band Neutrophils 1 % (0-8) Platelet Estimate Adequate Platelet Morphology Normal Red Blood Cell Morphology Normal Prothrombin Time 10.9 SEC (9.30-11.50) Prothrombin Time INR 1.0 (0.9-1.1) PTT 21 SEC (23-33) L Urine Color Yellow Urine Appearance Clear Urine pH 6.5 (4.5-8.0) Urine Specific [place] 1.010 (1.005-1.035) Urine Protein 2+ (NEGATIVE) H Urine Glucose (UA) Negative (NEGATIVE) Urine Ketones Negative (NEGATIVE) Urine Blood Negative (NEGATIVE) Urine Nitrite Negative (NEGATIVE) Urine Bilirubin Negative (NEGATIVE) Urine Urobilinogen Normal MG/DL (0.0-1.0) Urine Leukocyte Esterase Negative (NEGATIVE) Urine RBC 0 /HPF (0 - 0) Urine WBC 0 /HPF (0 - 0) Urine Squamous Epithelial Cells Occasional /LPF Urine Bacteria Occasional /HPF (NONE) Sodium Level 141 MMOL/L (136-145) Potassium Level 3.5 MMOL/L (3.5-5.1) Chloride Level 101 MMOL/L (98-107) Carbon Dioxide Level 33 MMOL/L (21-32) H Anion Gap 7 mmol/L (5-15) Blood Urea Nitrogen 17 mg/dL (7-18) Creatinine 1.2 MG/DL (0.55-1.30) Estimate Glomerular Filtration Rate > 60 mL/min (>60) Glucose Level 111 MG/DL (74-106) H Calcium Level 9.2 MG/DL (8.5-10.1) Total Bilirubin 0.7 MG/DL (0.2-1.0) Aspartate Amino Transferase (AST) 35 U/L (15-37) Alanine Aminotransferase (ALT) 19 U/L (12-78) Alkaline Phosphatase 113 U/L (46-116) Total Protein 8.2 G/DL (6.4-8.2) Albumin 3.6 G/DL (3.4-5.0) Globulin 4.6 g/dL Albumin/Globulin Ratio 0.8 (1.0-2.7) L Lipase 206 U/L (73-393) EKG Diagnostic Results EKG Time: 12:35 EP Interpretation: NSR, rate 75, QTc 471, incomplete right bundle branch block , no acute ST el Rate: normal Rhythm: NSR ST Segments: no acute changes CT/MRI/US Diagnostic Results CT/MRI/US Diagnostic Results : Impression Preliminary Findings Only See Final Report For Complete Findings CT HEAD Without Contrast: No acute intracranial process. Involutional changes with small vessel disease. Retention cyst in the right frontal sinus. Radiologist: Pako Gutierrez M.D. Study ready at 12:38 and initial results transmitted at 12:41 Last Vital Signs Date Time Temp Pulse Resp B/P (MAP) Pulse Ox O2 Delivery O2 Flow Rate FiO2 09/10/18 12:13 98.4 86 24 167/98 (121) 94 Room Air Disposition: ADMITTED INPATIENT Condition: Stable Hayder Leigh MD Sep 10, 2018 12:27
--- NOTE | 2018-09-10 12:30 | NUR ---
ED Nurse Note: Pt went down for head CT scan.
--- NOTE | 2018-09-10 12:40 | NUR ---
ED Nurse Note: Pt back from CT. No sign of acute distress.
--- NOTE | 2018-09-10 12:42 | Diagnostic Imaging Report ---
Indication: Headache Technique: Contiguous 5 mm thick transaxial imaging of the head obtained in a Siemens Sensation [address] scanner. Soft tissue and bone windows generated. Automatic Exposure Control was utilized. Total Dose length Product (DLP): 1491.[address] Dose Index Volume (CTDIvol): 70.38 mGy Comparison: 06/05/2015 Findings: Mild, nonspecific, white matter hypoattenuation is noted throughout the brain consistent with chronic small vessel disease. There is no midline shift, edema, acute hemorrhage, mass effect, or abnormal extra-axial fluid collections. Bones and extra osseous soft tissues are unremarkable. Impression: No acute intracranial bleed, mass effect or edema. Nonspecific white matter hypoattenuation probably due to chronic small vessel disease. The CT scanner at [facility] is accredited by the [employer] and the scans are performed using dose optimization techniques as appropriate to a performed exam including Automatic Exposure control.
[2018-09-10 13:09] VITALS: BP 145/90
[2018-09-10 13:24] LABS: HEMATOCRIT 48.8 % (42.0-52.0); HEMOGLOBIN 15.5 G/DL (14.2-18.0); MEAN CORPUSCULAR VOLUME 86 FL (80-99); PLATELET COUNT 184 K/UL (150-450); RED BLOOD COUNT 5.67 M/UL (4.70-6.10); WHITE BLOOD COUNT 11.5 K/UL (4.8-10.8)
[2018-09-10 13:26] LABS: APPEARANCE,URINE CLEAR; BILIRUBIN, URINE NEGATIVE (NEGATIVE); GLUCOSE, URINE (UA) NEGATIVE (NEGATIVE); KETONES,URINE NEGATIVE (NEGATIVE); LEUKOCYTE ESTERASE ,URINE NEGATIVE (NEGATIVE); NITRITE,URINE NEGATIVE (NEGATIVE); PH,URINE 6.5 (4.5-8.0); PROTEIN,URINE 2+ (NEGATIVE); UROBILINOGEN,URINE NORMAL MG/DL (0.0-1.0)
[2018-09-10 13:41] LABS: COLOR,URINE YELLOW
[2018-09-10 13:55] LABS: ALANINE AMINOTRANSFERASE 19 U/L (12-78); ALBUMIN 3.6 G/DL (3.4-5.0); ALBUMIN/GLOBULIN RATIO 0.8 (1.0-2.7); ALKALINE PHOSPHATASE 113 U/L (46-116); ANION GAP 7 mmol/L (5-15); ASPARTATE AMINO TRANSFERASE 35 U/L (15-37); BILIRUBIN,TOTAL 0.7 MG/DL (0.2-1.0); BLOOD UREA NITROGEN 17 mg/dL (7-18); CALCIUM 9.2 MG/DL (8.5-10.1); CARBON DIOXIDE 33 MMOL/L (21-32); CHLORIDE 101 MMOL/L (98-107); CREATININE 1.2 MG/DL (0.55-1.30); POTASSIUM 3.5 MMOL/L (3.5-5.1); SODIUM 141 MMOL/L (136-145)
[2018-09-10 14:10] VITALS: BP 138/79
--- NOTE | 2018-09-10 14:31 | NUR ---
TRANSFER TO FLOOR: Patient transferred to [facility] as ordered, per ERMD . Report given to PALLAVI Hidalgo at ext [phone]. Belongings are with patient. No sign of acute distress.
[2018-09-10 15:00] VITALS: BP 169/104
--- NOTE | 2018-09-10 15:06 | NUR ---
NURSE NOTES: I received report over the phone from PALLAVI Pa; patient awake, alert x3, confused; on room air, no sign of distress and shortness of breath; no sing of chest pain; IV RAC 20G flushes well; Upper head laceration, noticed loki, no acute bleeding; Right Foot redness and pitting edema; urinal within reach; call light within reach; side rails up x2, breaks engaged, bed at lowest position. will keep monitoring.
--- NOTE | 2018-09-10 15:06 | NUR ---
NURSE NOTES: Belonging lists crossed matched and singed by transferring and receiving nurse. Patient's belonging at the bed side.
--- NOTE | 2018-09-10 15:22 | NUR ---
NURSE NOTES: I communicated MD Gomez to get admission order for DVT, Diet, Code status and medications. Waiting for order.
--- NOTE | 2018-09-10 15:30 | NUR ---
NURSE NOTES: Order received from MD Gomez, carried out as order received.
[2018-09-10] MEDS ORDERED: Fleet's Enema 133ml RECTAL PRN (16:15)
[2018-09-10] MEDS ORDERED: Glimepiride 1mg tab ORAL SCH (16:30)
[2018-09-10] MEDS: NovoLOG Insulin Flexpen SUBQ SCH ×2 (16:30→20:32)
--- NOTE | 2018-09-10 17:00 | NUR ---
CASE MANAGEMENT: REVIEW 67Y/M SCOTT FROM [facility] CC: S/P FALL . HEAD INJURY SI: CONCUSSION . LACERATION / BACK OF HEAD T 97.5 HR 85 RR 19 BP 169/104 SAT 96% ROOM AIR WBC 11.5 GLUCOSE 111 IS: LIDOCAINE INJ X1 Tdap IM X1 PATIENT ADMITTED TO MED/SURG UNIT 09/10/2018 DCP: PATIENT IS FROM [facility]
[2018-09-10] MEDS: Milk of Magnesia 30ml Ud ORAL SCH (17:21)
--- NOTE | 2018-09-10 17:56 | NUR ---
NURSE NOTES: I communicated MD Gomez regarding patient's pitting edema and rashes on the Right Foot. Also patient is hypertensive and diabetic. WBC 11.5. Asking MD if any consult is needed. Waiting for order.
--- NOTE | 2018-09-10 18:09 | NUR ---
NURSE NOTES: Order received from MD Gomez, carried out as ordered.
--- NOTE | 2018-09-10 19:23 | NUR ---
HAND-OFF: Report given to PALLAVI Ness.
--- NOTE | 2018-09-10 19:46 | NUR ---
NURSE NOTES: Received report from PALLAVI Hidalgo. Patient is in bed, awake and alert x3. In room air with no signs of distress or SOB. Right AC IV is intact. Upper head laceration with loki. No bleeding from laceration at this time. Bed is locked and in lowest position. Call light is in reach. Will continue to monitor the patient.
[2018-09-10 20:00] VITALS: BP 151/90
[2018-09-10] MEDS: Tamsulosin 0.4mg cap ORAL SCH (20:23)
[2018-09-11] VITALS: BP 142/90
--- NOTE | 2018-09-11 01:30 | History and Physical Report ---
DATE OF ADMISSION: 09/10/2018 HISTORY OF PRESENT ILLNESS: The patient has pitting edema on the right foot and also rashes on the right foot. The patient is diabetic and has elevated high blood pressure and elevated leukocytosis. The patient is also being admitted status post fall with head trauma. The patient had laceration on the scalp, which was stapled, and also being admitted for dehydration and low borderline potassium. The patient denies any pain. Denies nausea, vomiting, or diarrhea. No fever or chills. Denies shortness of breath. Denies headache at this point. PAST MEDICAL HISTORY: Psychosis as well as hypertension, constipation, iron-deficiency anemia, NIDDM, GERD, and BPH. PAST SURGICAL HISTORY: Left hand surgery. MEDICATIONS: Norvasc, vitamin C, Colace, ferrous sulfate, Amaryl, insulin, Protonix, olanzapine, Januvia, and Flomax. ALLERGIES: No known allergies. SOCIAL HISTORY: History of smoking. History of drug abuse. No history of alcohol abuse. Comes from a [facility]. FAMILY HISTORY: Does have a history of diabetes. REVIEW OF SYSTEMS: HEENT: Denies headaches. RESPIRATORY: Denies shortness of breath. Denies cough. CARDIOVASCULAR: Denies chest pain. GASTROINTESTINAL: Denies nausea, vomiting, or diarrhea. EXTREMITY: Denies pain. SHELLFISH WEIGHER: No change in vision or speech pattern. Denies headaches. PHYSICAL EXAMINATION: VITAL SIGNS: Temperature is 98.1, pulse is 73, and blood pressure is 145/90. HEENT: PERRLA. NECK: Supple. No lymphadenopathy. CHEST: Clear to auscultation. CARDIOVASCULAR: Regular rate and rhythm. No murmurs or extra sounds. GASTROINTESTINAL: Soft, nontender, and nondistended. No organomegaly. EXTREMITIES: No edema. Moves all four extremities. NEUROLOGIC: Sensory intact to light touch. Reflexes equal on both sides. Cranial nerves II through XII are intact. There is evident laceration on the scalp due to fall. LABORATORY DATA: WBC of 11.5, hemoglobin of 15.5, and platelets 184,000. Sodium 141, potassium 3.5, BUN of 17, creatinine of 1.2, and glucose of 111. ASSESSMENT AND PLAN: Status post fall with head trauma. We will do neuro checks. I have consulted a neurologist. For dehydration and hypokalemia, I have consulted Dr. Mcgee. For the leukocytosis and , I have consulted Dr. Bhaskar Rendon to give antibiotics for the infectious etiology indicated and warranted. Sabino Gomez M.D. DR: JEFFREY JOB#: [id number] CC:
[2018-09-11 04:00] VITALS: BP 152/94
[2018-09-11] MEDS: NovoLOG Insulin Flexpen SUBQ SCH ×4 (05:41→21:01)
[2018-09-11] MEDS: Glimepiride 1mg tab ORAL SCH (06:38)
[2018-09-11 07:00] LABS: BASOPHILS % (AUTO) 0.7 % (0.0-2.0); EOSINOPHILS % (AUTO) 0.5 % (0.0-3.0); HEMATOCRIT 46.2 % (42.0-52.0); HEMOGLOBIN 15.2 G/DL (14.2-18.0); LYMPHOCYTES % (AUTO) 8.6 % (20.0-45.0); MEAN CORPUSCULAR VOLUME 86 FL (80-99); MONOCYTES % (AUTO) 8.4 % (1.0-10.0); NEUTROPHILS % (AUTO) 81.7 % (45.0-75.0); PLATELET COUNT 189 K/UL (150-450); RED BLOOD COUNT 5.39 M/UL (4.70-6.10); RED CELL DISTRIBUTION WIDTH 13.8 % (11.6-14.8); WHITE BLOOD COUNT 10.9 K/UL (4.8-10.8)
--- NOTE | 2018-09-11 07:07 | NUR ---
HAND-OFF: Report given to PALLAVI Sánchez.
[2018-09-11 07:17] LABS: ALANINE AMINOTRANSFERASE 12 U/L (12-78); ALBUMIN 3.4 G/DL (3.4-5.0); ALBUMIN/GLOBULIN RATIO 0.8 (1.0-2.7); ALKALINE PHOSPHATASE 106 U/L (46-116); ANION GAP 5 mmol/L (5-15); ASPARTATE AMINO TRANSFERASE 28 U/L (15-37); BILIRUBIN,TOTAL 1.2 MG/DL (0.2-1.0); BLOOD UREA NITROGEN 15 mg/dL (7-18); CALCIUM 9.1 MG/DL (8.5-10.1); CARBON DIOXIDE 31 MMOL/L (21-32); CHLORIDE 104 MMOL/L (98-107); CREATININE 1.2 MG/DL (0.55-1.30); POTASSIUM 3.4 MMOL/L (3.5-5.1); SODIUM 140 MMOL/L (136-145)
[2018-09-11 07:20] LABS: BILIRUBIN,DIRECT 0.2 MG/DL (0.0-0.3)
--- NOTE | 2018-09-11 07:38 | NUR ---
NURSE NOTES: Pt resting in bed. Denies pain. small stitches in place on right side head, no bleeding. BP elevated, SBP 160, will monitor. SCD on. Dry blood on right great toe, RLE edema and redness. call light within reach, bed in low position, bed alarm on. Fall precaution maintained. will continue to monitor.
[2018-09-11 08:00] VITALS: BP 161/99
[2018-09-11] MEDS: Ascorbic Acid 500mg tab ORAL SCH (08:15)
[2018-09-11] MEDS: Milk of Magnesia 30ml Ud ORAL SCH (08:16)
[2018-09-11] MEDS: Docusate 100mg cap ORAL SCH (08:16)
--- NOTE | 2018-09-11 10:28 | NUR ---
NURSE NOTES: pt A/o x 2.
--- NOTE | 2018-09-11 12:16 | Cardiology Report ---
APPROVED REPORT EKG Measurement Heart [id number] [place] [id number] [id number] Normal sinus rhythm with sinus arrhythmia Possible Left atrial enlargement Incomplete right bundle branch block Borderline ECG
[2018-09-11] MEDS ORDERED: Vancomycin 750mg/NS 275ml IVPB SCH ×2 (15:00)
--- NOTE | 2018-09-11 15:27 | Diagnostic Imaging Report ---
Indication: Foot Pain Comparison: None Findings: 3 views of the right foot were obtained. No acute fractures, malalignment, erosions or periostitis are identified. Bones are osteopenic. Impression: No acute findings.
[2018-09-11 16:00] VITALS: BP 147/95
--- NOTE | 2018-09-11 16:37 | Consultation ---
Consult Note Assessment/Plan Renal consult dictated # [id number] Jude Rendon MD Sep 11, 2018 16:37
--- NOTE | 2018-09-11 16:47 | NUR ---
NURSE NOTES: Pt removed IV , refused new IV insert, notified MD, new order received. will continue to monitor.
--- NOTE | 2018-09-11 16:55 | NUR ---
Dr. Gomez and Dr Koo aware no IV site. Addendum: 09/11/18 at 1657 by Princess Wilson RN pt refused to shower or bed bath.
--- NOTE | 2018-09-11 19:38 | NUR ---
CASE MANAGEMENT: REVIEW SI: CONCUSSION . LACERATION / BACK OF HEAD EDEMA & RASHES ON THE RIGHT FOOT THE RIGHT FOOT T 97.8 HR 102 RR 20 BP 161/99 SAT 92% ROOM AIR WBC 10.9 K 3.4 T-BILI 1.2 IS: KEFLEX PO Q8HR DOXYCYCLINE PO Q12HR LOTENSIN PO QD PROTONIX PO QD MED/SURG STATUS DCP: PATIENT IS FROM [facility]
--- NOTE | 2018-09-11 19:56 | NUR ---
NURSE NOTES: Pt is in bed, awake and verbal. No acute distress noted. Pt is on Fall precaution, bed alarm on. Bed locked low in position,side rails up and call light within reach. Pt instructed to call before getting out of bed. Pt will be monitored.
[2018-09-11 20:00] VITALS: BP 153/91
[2018-09-11 20:12] VITALS: BP 153/91
[2018-09-11] MEDS: Doxycycline Monohydrate 100mg ORAL SCH (20:56)
[2018-09-11] MEDS: Tamsulosin 0.4mg cap ORAL SCH (20:56)
--- NOTE | 2018-09-11 22:00 | Consultation ---
DATE OF CONSULTATION: 09/11/2018 INFECTIOUS DISEASE CONSULTATION CONSULTING PHYSICIAN: Bhaskar Rendon M.D. PRIMARY ATTENDING PHYSICIAN: Sabino Gomez M.D. REASON FOR CONSULT: Right foot cellulitis. HISTORY OF PRESENT ILLNESS: This is a 67-year-old white male [facility] after a mechanical fall rendered the injury to back of the head. The patient has diffuse fever and chills in the ER. Had borderline leukocytosis of 11.5 in ER. Had erythema and swelling of right foot and bleeding and loosening of the first toe nail. The patient does not have any significant pain. PAST MEDICAL HISTORY: Significant for diabetes, hypertension, psychosis, BPH, and gastroesophageal reflux disease. MEDICATIONS: Vitamins, Colace, ferrous sulfate, Premarin, Zyprexa, Flomax, milk of magnesium, Protonix, Januvia, insulin, and Tylenol. ALLERGIES: No known drug allergies. SOCIAL HISTORY: Single. half-way resident. Denies alcohol, drug abuse, or smoking. REVIEW OF SYSTEMS: No fever. No chills. No headache. No coughing. No shortness of breath. No problem passing urine. PHYSICAL EXAMINATION: VITAL SIGNS: Temperature 98.1, pulse 102, and blood pressure 161/99. GENERAL APPEARANCE: No acute distress. HEAD AND NECK: Has poor dentition. HEART: Tachycardic. LUNGS: Clear. ABDOMEN: Obese, soft, and nontender. EXTREMITIES: Has some pre-ankle and foot edema in the right side. Has erythema that is ill-defined. Has some bleeding on the big toenail. NEUROLOGIC: Awake, alert, and oriented. LABORATORY AND DIAGNOSTIC DATA: WBC 10.9, hemoglobin 15.2, hematocrit 46.2, and platelets 189,000. Sodium 140, potassium 3.4, chloride 104, bicarb 31, BUN 15, and creatinine 1.2. CT scan of the head was negative for bleeding, mass effect, or edema. IMPRESSION: We will obtain an x-ray of the right foot. We will started empirically on IV vancomycin. May benefit from Podiatry evaluation. At the end of my exam, I thank Dr. Gomez for involving me in the care of this patient. Bhaskar Rendon M.D. DR: GERALD JOB#: [id number] CC: CATALINO
[2018-09-11] MEDS: Cephalexin 500mg cap ORAL SCH (22:28)
--- NOTE | 2018-09-11 23:03 | General Progress Note ---
Assessment/Plan Problem List: (1) Psychiatric disorder ICD Codes: F99 - Mental disorder, not otherwise specified SNOMED: 18575534, 989050332 (2) Failure to thrive in adult ICD Codes: R62.7 - Adult failure to thrive SNOMED: 812947986 (3) Schizophrenia ICD Codes: F20.9 - Schizophrenia, unspecified SNOMED: 67510907 (4) Concussion ICD Codes: S06.0X9A - Concussion with loss of consciousness of unspecified duration, initial encounter SNOMED: 627234517 Qualifiers: Qualified Codes: S06.0X0A - Concussion without loss of consciousness, initial encounter (5) Fall ICD Codes: W19.XXXA - Unspecified fall, initial encounter SNOMED: 0053390, 087779192 Qualifiers: Qualified Codes: W19.XXXA - Unspecified fall, initial encounter Status: progressing Assessment/Plan: s/p fall ftt psychosis afebrile reviewed chart and albs no acute events Subjective ROS Limited/Unobtainable: Yes Allergies: Coded Allergies: No Known Allergies (Unverified , 06/04/15) Objective Last 24 Hour Vital Signs Date Time Temp Pulse Resp B/P (MAP) Pulse Ox O2 Delivery O2 Flow Rate FiO2 09/11/18 21:00 Room Air 09/11/18 20:12 97.8 88 18 153/91 (111) 96 09/11/18 20:00 97.8 88 18 153/91 (111) 96 09/11/18 17:04 147/95 09/11/18 16:00 97.8 80 18 147/95 (112) 92 09/11/18 09:00 Room Air 09/11/18 08:16 102 161/99 09/11/18 08:00 98.1 102 20 161/99 (119) 94 09/11/18 04:00 98.2 82 20 152/94 (113) 94 09/11/18 00:00 98.6 74 20 142/90 (107) 95 Intake and Output 09/10/18 09/11/18 19:00 07:00 # Voids 1 # Bowel Movements 1 Laboratory Tests 09/11/18 05:50: White Blood Count 10.9H, Red Blood Count 5.39, Hemoglobin 15.2, Hematocrit 46.2 , Mean Corpuscular Volume 86, Mean Corpuscular Hemoglobin 28.1, Mean Corpuscular Hemoglobin Concent 32.8, Red Cell Distribution Width 13.8, Platelet Count 189, Mean Platelet Volume 7.7, Neutrophils (%) (Auto) 81.7H, Lymphocytes ( %) (Auto) 8.6L, Monocytes (%) (Auto) 8.4, Eosinophils (%) (Auto) 0.5, Basophils (%) (Auto) 0.7, Sodium Level 140, Potassium Level 3.4L, Chloride Level 104, Carbon Dioxide Level 31, Anion Gap 5, Blood Urea Nitrogen 15, Creatinine 1.2, Estimat Glomerular Filtration Rate > 60, Glucose Level 98, Calcium Level 9.1, Total Bilirubin 1.2H, Direct Bilirubin 0.2, Aspartate Amino Transf (AST/SGOT) 28 , Alanine Aminotransferase (ALT/SGPT) 12, Alkaline Phosphatase 106, Total Protein 7.9, Albumin 3.4, Globulin 4.5, Albumin/Globulin Ratio 0.8L Height (Feet): 5 Height (Inches): 10.00 Weight (Pounds): 199 Cardiovascular: normal rate Sabino Gomez MD Sep 11, 2018 23:03
[2018-09-12] VITALS: BP 142/85
--- NOTE | 2018-09-12 | Consultation ---
DATE OF CONSULTATION: 09/11/2018 NEPHROLOGY CONSULTATION CONSULTING PHYSICIAN: Jude Rendon M.D. REFERRING PHYSICIAN: Sabino Gomez M.D. REASON FOR CONSULTATION: Hypertension and history of diabetes, rule out diabetic nephropathy. HISTORY OF PRESENT ILLNESS: This is a 67-year-old male, who had a mechanical fall. He was brought into the emergency room. He was admitted. Dr. Mcgee was asked to see the patient in Nephrology consultation with history of hypertension, also diabetes, and to rule out diabetic nephropathy. I am covering for Dr. Mcgee today. PAST MEDICAL HISTORY: The patient has history of anemia, hypertension, and diabetes. He really is a very poor historian. Everything I ask him, he said I do not know. He has reported history of gastroesophageal reflux disease. MEDICATIONS: Reviewed in the EMR. SOCIAL HISTORY: The patient stated that he lives with parents. There is no history of smoking. REVIEW OF SYSTEMS: Unobtainable. PHYSICAL EXAMINATION: GENERAL: The patient is a 67-year-old male, in no acute distress. VITAL SIGNS: Blood pressure is 147/95, pulse is 80, respirations 18, and temperature 97.8. HEENT: Combine conjunctivae. Anicteric sclerae. The patient has very poor hygiene. NECK: Supple. LUNGS: Clear to auscultation. HEART: S1 and S2 without murmurs or rubs. ABDOMEN: Soft and nontender. EXTREMITIES: Bilateral pedal edema. The patient has also scratch lynch on his foot. LABORATORY FINDINGS: UA shows 2+ protein. The chemistry panel shows a sodium 140, potassium 3.4, chloride 104, CO2 30, BUN is 15, and creatinine 1.2. Calcium is 9.1. CBC shows a WBC of 10,900, hematocrit is 46.2, hemoglobin is 15.2, and platelets is 189,000. ASSESSMENT: This is a 67-year-old male, status post fall. He has history of diabetes and hypertension. He has some proteinuria, so he may have underlying CKD because of his diabetes and hypertension. His blood pressure is not quite well controlled. PLAN: I would continue the amlodipine as is. However, I would add an JOSE inhibitor for renal protection especially in the presence of proteinuria. His diabetes needs to be tightly controlled. Laboratories will be followed. Further recommendations will be given based on those results. Thank you very much for this consultation. Jude Rendon M.D. DR: JERI JOB#: [id number] CC:
--- NOTE | 2018-09-12 02:09 | NUR ---
NURSE NOTES: Pt is in bed, asleep. Fall precaution in place.
[2018-09-12 04:00] VITALS: BP 153/99
[2018-09-12] MEDS: Glimepiride 1mg tab ORAL SCH (06:13)
[2018-09-12] MEDS: Cephalexin 500mg cap ORAL SCH ×3 (06:13→22:00)
[2018-09-12] MEDS: NovoLOG Insulin Flexpen SUBQ SCH ×4 (06:15→20:16)
--- NOTE | 2018-09-12 07:10 | NUR ---
HAND-OFF: Report given to PALLAVI Hines.Informed Donny that patient is a Fall RISK.
--- NOTE | 2018-09-12 07:15 | NUR ---
NURSE NOTES: Received patient in bed, Not in respiratory/cardiac distress. Denies any pain or discomfort. No IV. No bleeding or s/s of infection on laceration with loki on his head. Bed is in lowest position and locked. Bed alarm is on. Call light within reach. Reminded patient to call nurses if needed. Observed Fall precaution. Will continue plan of care.
[2018-09-12 08:00] VITALS: BP 150/101
[2018-09-12 08:03] LABS: BASOPHILS % (AUTO) 0.9 % (0.0-2.0); HEMATOCRIT 45.2 % (42.0-52.0); HEMOGLOBIN 14.6 G/DL (14.2-18.0); LYMPHOCYTES % (AUTO) 11.3 % (20.0-45.0); MEAN CORPUSCULAR VOLUME 86 FL (80-99); MONOCYTES % (AUTO) 9.4 % (1.0-10.0); NEUTROPHILS % (AUTO) 77.3 % (45.0-75.0); PLATELET COUNT 180 K/UL (150-450); RED BLOOD COUNT 5.24 M/UL (4.70-6.10); RED CELL DISTRIBUTION WIDTH 14.5 % (11.6-14.8); WHITE BLOOD COUNT 9.8 K/UL (4.8-10.8)
[2018-09-12 08:17] LABS: ANION GAP 4 mmol/L (5-15); BLOOD UREA NITROGEN 15 mg/dL (7-18); CARBON DIOXIDE 31 MMOL/L (21-32); CHLORIDE 107 MMOL/L (98-107); CREATININE 1.2 MG/DL (0.55-1.30); POTASSIUM 3.2 MMOL/L (3.5-5.1); SODIUM 142 MMOL/L (136-145)
[2018-09-12] MEDS: Ascorbic Acid 500mg tab ORAL SCH (08:20)
[2018-09-12] MEDS: Doxycycline Monohydrate 100mg ORAL SCH ×2 (08:20→20:36)
[2018-09-12] MEDS: Docusate 100mg cap ORAL SCH ×3 (08:33→18:00)
[2018-09-12] MEDS: Milk of Magnesia 30ml Ud ORAL SCH (08:33)
--- NOTE | 2018-09-12 08:33 | NUR ---
NURSE NOTES: Patient stated that he had bowel movement yesterday and he said he does not need stool softner and MOM. He will let RN know if he needs them.Abdomen is soft to touch.
--- NOTE | 2018-09-12 09:32 | NUR ---
NURSE NOTES: Patient's potassium level is 3.[address] Mcgee ordered potassium premix IV but patient refused IV insertion and prefers to take po. Dr. Mcgee agreed to change IV to PO.
--- NOTE | 2018-09-12 10:00 | NUR ---
NURSE NOTES: Patient put on his own clothes over hospital gofani, Rn asked to take off his own clothes and explained the policy but patient refused to take them off x3 stating " I am good." Will continue to monitor.
--- NOTE | 2018-09-12 11:13 | Nephrology Progress Note ---
Assessment/Plan Problem List: (1) Fall (2) Hypertension (3) Diabetes mellitus (4) Proteinuria Assessment This is a 67-year-old male, status post fall. h/o diabetes and hypertension. proteinuria, underlying CKD because of his diabetes and hypertension. HTN Plan PLAN: Norvasc Loc inhibitors PRN Hydralazine K supplement Subjective ROS Limited/Unobtainable: No Constitutional: Reports: malaise Objective Objective Last 24 Hour Vital Signs Date Time Temp Pulse Resp B/P (MAP) Pulse Ox O2 Delivery O2 Flow Rate FiO2 09/12/18 09:00 Room Air 09/12/18 08:20 150/101 09/12/18 08:20 84 150/101 09/12/18 08:00 97.5 84 19 150/101 (117) 95 09/12/18 04:00 97.9 100 20 153/99 (117) 96 09/12/18 00:00 97.8 92 20 142/85 (104) 96 09/11/18 21:00 Room Air 09/11/18 20:12 97.8 88 18 153/91 (111) 96 09/11/18 20:00 97.8 88 18 153/91 (111) 96 09/11/18 17:04 147/95 09/11/18 16:00 97.8 80 18 147/95 (112) 92 Intake and Output 09/11/18 09/12/18 19:00 07:00 Intake Total 183.333 ml Output Total 1500 ml Balance -1316.667 ml Intake IV Total 183.333 ml Output Urine Total 1500 ml Laboratory Tests 09/12/18 07:15: White Blood Count 9.8, Red Blood Count 5.24, Hemoglobin 14.6, Hematocrit 45.2, Mean Corpuscular Volume 86, Mean Corpuscular Hemoglobin 27.9, Mean Corpuscular Hemoglobin Concent 32.4, Red Cell Distribution Width 14.5, Platelet Count 180, Mean Platelet Volume 7.4, Neutrophils (%) (Auto) 77.3H, Lymphocytes (%) (Auto) 11.3L, Monocytes (%) (Auto) 9.4, Eosinophils (%) (Auto) 1.0, Basophils (%) (Auto ) 0.9, Sodium Level 142, Potassium Level 3.2L, Chloride Level 107, Carbon Dioxide Level 31, Anion Gap 4L, Blood Urea Nitrogen 15, Creatinine 1.2, Estimat Glomerular Filtration Rate > 60, Glucose Level 92, Calcium Level 9.0 Height (Feet): 5 Height (Inches): 10.00 Weight (Pounds): 199 General Appearance: no apparent distress, other - uncooparative Cardiovascular: normal rate Respiratory/Chest: decreased breath sounds Abdomen: distended Cristopher Mcgee MD Sep 12, 2018 11:13
[2018-09-12] MEDS ORDERED: HydrALAZINE 25mg tab ORAL PRN (11:30)
--- NOTE | 2018-09-12 11:41 | NUR ---
NURSE NOTES: Patient refused blood sugar check stating " No, I am fine." Rn offered x3 and explained the risks and benefits but patient refused x3. No s/s of hypo/hyperglycemia. Will continue to monitor.
[2018-09-12 11:55] VITALS: BP 157/103
--- NOTE | 2018-09-12 14:01 | Infectious Diseases Prog Note ---
Assessment/Plan Assessment/Plan A; R foot cellulitis Paronychia DM Psychosis HPN s/p fall P: Continue PO Keflex & Doxycycline Subjective ROS Limited/Unobtainable: Yes Constitutional: Reports: no symptoms Respiratory: Reports: no symptoms Psychiatric: Reports: other - noncooperative, refused IV antibiotic Allergies: Coded Allergies: No Known Allergies (Unverified , 06/04/15) Objective Vital Signs Last 24 Hour Vital Signs Date Time Temp Pulse Resp B/P (MAP) Pulse Ox O2 Delivery O2 Flow Rate FiO2 09/12/18 11:55 98.9 88 21 157/103 (121) 95 09/12/18 09:00 Room Air 09/12/18 08:20 150/101 09/12/18 08:20 84 150/101 09/12/18 08:00 97.5 84 19 150/101 (117) 95 09/12/18 04:00 97.9 100 20 153/99 (117) 96 09/12/18 00:00 97.8 92 20 142/85 (104) 96 09/11/18 21:00 Room Air 09/11/18 20:12 97.8 88 18 153/91 (111) 96 09/11/18 20:00 97.8 88 18 153/91 (111) 96 09/11/18 17:04 147/95 09/11/18 16:00 97.8 80 18 147/95 (112) 92 Height (Feet): 5 Height (Inches): 10.00 Weight (Pounds): 199 General Appearance: no acute distress HEENT: mucous membranes moist Respiratory/Chest: lungs clear Cardiovascular: normal rate Abdomen: soft, non tender Extremities: other - edema of R foot Skin: other - erytemema of R foot Neurologic/Psychiatric: alert, responsive Microbiology Date/Time Source Procedure Growth Status 09/10/18 14:10 Nasal Nares MRSA Culture - Final NO METHICILLIN RESISTANT STAPH AUREUS... Complete 09/10/18 14:10 Rectum VRE Culture - Final NO VANCOMYCIN RESISTANT ENTEROCOCCUS ... Complete 09/10/18 14:10 Rectum - Final NO CARBAPENEM-RESISTANT ENTEROBACTERI... Complete Laboratory Tests Test 09/12/18 07:15 White Blood Count 9.8 K/UL (4.8-10.8) Red Blood Count 5.24 M/UL (4.70-6.10) Hemoglobin 14.6 G/DL (14.2-18.0) Hematocrit 45.2 % (42.0-52.0) Mean Corpuscular Volume 86 FL (80-99) Mean Corpuscular Hemoglobin 27.9 PG (27.0-31.0) Mean Corpuscular Hemoglobin Concent 32.4 G/DL (32.0-36.0) Red Cell Distribution Width 14.5 % (11.6-14.8) Platelet Count 180 K/UL (150-450) Mean Platelet Volume 7.4 FL (6.5-10.1) Neutrophils (%) (Auto) 77.3 % (45.0-75.0) H Lymphocytes (%) (Auto) 11.3 % (20.0-45.0) L Monocytes (%) (Auto) 9.4 % (1.0-10.0) Eosinophils (%) (Auto) 1.0 % (0.0-3.0) Basophils (%) (Auto) 0.9 % (0.0-2.0) Sodium Level 142 MMOL/L (136-145) Potassium Level 3.2 MMOL/L (3.5-5.1) L Chloride Level 107 MMOL/L (98-107) Carbon Dioxide Level 31 MMOL/L (21-32) Anion Gap 4 mmol/L (5-15) L Blood Urea Nitrogen 15 mg/dL (7-18) Creatinine 1.2 MG/DL (0.55-1.30) Estimat Glomerular Filtration Rate > 60 mL/min (>60) Glucose Level 92 MG/DL (74-106) Calcium Level 9.0 MG/DL (8.5-10.1) Current Medications Medications (Trade) Dose Ordered Sig/Pablo Route PRN Reason Start Time Stop Time Status Last Admin Dose Admin Acetaminophen (Tylenol) 325 mg Q6H PRN ORAL For Pain 09/10/18 16:15 10/10/18 16:14 Amlodipine Besylate (Norvasc) 5 mg BID ORAL 09/12/18 18:00 10/10/18 17:29 Benazepril HCl (Lotensin) 40 mg DAILY ORAL 09/13/18 09:00 10/11/18 16:44 Cephalexin (Keflex) 500 mg Q8HR ORAL 09/11/18 22:00 09/18/18 21:59 09/12/18 06:13 Dextrose (Dextrose 50%) 25 ml Q30M PRN IV Hypoglycemia 09/10/18 16:15 10/10/18 16:14 Dextrose (Dextrose 50%) 50 ml Q30M PRN IV Hypoglycemia 09/10/18 16:15 10/10/18 16:14 Docusate Sodium (Colace) 100 mg TID ORAL 09/12/18 13:00 10/11/18 08:59 Doxycycline Monohydrate (Doxycycline Monohydrate) 100 mg EVERY 12 HOURS ORAL 09/11/18 21:00 09/18/18 20:59 09/12/18 08:20 Glimepiride (Amaryl) 1 mg ACBREAKFAST ORAL 09/11/18 06:30 10/11/18 06:29 09/12/18 06:13 Hydralazine HCl (Apresoline) 25 mg Q4H PRN ORAL bp over 160 syst 09/12/18 11:30 10/12/18 11:29 Insulin Aspart (NovoLOG) BEFORE MEALS AND HS SUBQ 09/10/18 16:30 10/10/18 16:29 09/11/18 21:01 Magnesium Hydroxide (Mom) 30 ml DAILY ORAL 09/10/18 16:45 10/10/18 16:44 09/11/18 08:16 Olanzapine (ZyPREXA) 5 mg BEDTIME ORAL 09/10/18 21:00 10/10/18 20:59 09/11/18 20:56 Pantoprazole (Protonix) 40 mg DAILY ORAL 09/10/18 16:30 10/10/18 16:29 09/12/18 08:20 Sitagliptin Phosphate (Januvia) 100 mg DAILY ORAL 09/10/18 16:30 10/10/18 16:29 09/12/18 08:19 Sodium Phosphate (Fleet's Sodium Phosl Enema) 133 ml DAILY PRN RECTAL Constipation 09/10/18 16:15 10/10/18 16:14 Tamsulosin HCl (Flomax) 0.4 mg BEDTIME ORAL 09/10/18 21:00 10/10/18 20:59 09/11/18 20:56 Bhaskar Rendon MD Sep 12, 2018 14:01
--- NOTE | 2018-09-12 14:10 | NUR ---
NURSE NOTES: patient is calm and sitting on the chair, no s/s of hypo/hypertension. RN offered scheduled antibiotics but patient refused to take med stating " I took it in the morning, I don't think I need it." Rn explained the risks and benefits but patient refused x3 and RN informed Bhaskar Clifton with no new order.
[2018-09-12 16:00] VITALS: BP 128/72
--- NOTE | 2018-09-12 18:33 | NUR ---
NURSE NOTES: patient took his meds and ate dinner.
--- NOTE | 2018-09-12 19:30 | NUR ---
HAND-OFF: Report given to Aida.
--- NOTE | 2018-09-12 20:00 | NUR ---
NURSE NOTES: Patient in bed, awake, verbally responsive. No IV access. No s/s distress noted or pain noted. Bed in lowest position or call light within reach. Will continue to monitor.
[2018-09-12 20:08] VITALS: BP 132/86
--- NOTE | 2018-09-12 20:15 | NUR ---
NURSE NOTES: Patient refused blood sugar check stating "No." Nurse explained the risks and benefits but patient refused. Will continue to monitor.
[2018-09-12] MEDS: Tamsulosin 0.4mg cap ORAL SCH (20:36)
--- NOTE | 2018-09-12 22:47 | NUR ---
NURSE NOTES: Patient refused 2200 Keflex medication. Nurse explained purpose and benefits, patient still refused.
--- NOTE | 2018-09-12 22:50 | General Progress Note ---
Assessment/Plan Problem List: (1) Psychiatric disorder ICD Codes: F99 - Mental disorder, not otherwise specified SNOMED: 97506518, 664927756 (2) Failure to thrive in adult ICD Codes: R62.7 - Adult failure to thrive SNOMED: 079794923 (3) Schizophrenia ICD Codes: F20.9 - Schizophrenia, unspecified SNOMED: 26232603 (4) Concussion ICD Codes: S06.0X9A - Concussion with loss of consciousness of unspecified duration, initial encounter SNOMED: 903792563 Qualifiers: Qualified Codes: S06.0X0A - Concussion without loss of consciousness, initial encounter (5) Fall ICD Codes: W19.XXXA - Unspecified fall, initial encounter SNOMED: 8705778, 747544979 Qualifiers: Qualified Codes: W19.XXXA - Unspecified fall, initial encounter Status: progressing Assessment/Plan: s/p fall dc in am reviewed chart and albs psychosis reviewed chart and labs Subjective ROS Limited/Unobtainable: Yes Allergies: Coded Allergies: No Known Allergies (Unverified , 06/04/15) Objective Last 24 Hour Vital Signs Date Time Temp Pulse Resp B/P (MAP) Pulse Ox O2 Delivery O2 Flow Rate FiO2 09/12/18 21:03 Room Air 09/12/18 20:18 107 09/12/18 20:08 98.2 115 20 132/86 (101) 96 09/12/18 18:16 89 154/92 09/12/18 16:00 97.5 90 18 128/72 (90) 99 09/12/18 11:55 98.9 88 21 157/103 (121) 95 09/12/18 09:00 Room Air 09/12/18 08:20 150/101 09/12/18 08:20 84 150/101 09/12/18 08:00 97.5 84 19 150/101 (117) 95 09/12/18 04:00 97.9 100 20 153/99 (117) 96 09/12/18 00:00 97.8 92 20 142/85 (104) 96 Intake and Output 09/11/18 09/12/18 19:00 07:00 Intake Total 183.333 ml Output Total 1500 ml Balance -1316.667 ml Intake IV Total 183.333 ml Output Urine Total 1500 ml Laboratory Tests 09/12/18 07:15: White Blood Count 9.8, Red Blood Count 5.24, Hemoglobin 14.6, Hematocrit 45.2, Mean Corpuscular Volume 86, Mean Corpuscular Hemoglobin 27.9, Mean Corpuscular Hemoglobin Concent 32.4, Red Cell Distribution Width 14.5, Platelet Count 180, Mean Platelet Volume 7.4, Neutrophils (%) (Auto) 77.3H, Lymphocytes (%) (Auto) 11.3L, Monocytes (%) (Auto) 9.4, Eosinophils (%) (Auto) 1.0, Basophils (%) (Auto ) 0.9, Sodium Level 142, Potassium Level 3.2L, Chloride Level 107, Carbon Dioxide Level 31, Anion Gap 4L, Blood Urea Nitrogen 15, Creatinine 1.2, Estimat Glomerular Filtration Rate > 60, Glucose Level 92, Calcium Level 9.0 Height (Feet): 5 Height (Inches): 10.00 Weight (Pounds): 199 Cardiovascular: normal rate Respiratory/Chest: lungs clear Abdomen: soft Sabino Gomez MD Sep 12, 2018 22:50
[2018-09-13 00:38] VITALS: BP 141/98
[2018-09-13 04:20] VITALS: BP 155/97
--- NOTE | 2018-09-13 05:25 | NUR ---
HAND-OFF: Report given to CANDIDO HAMMOND RN.
--- NOTE | 2018-09-13 05:26 | NUR ---
NURSE NOTES: Received report from Aida OLIVO, patient is asleep in his bed, no acute distress noted, will continue to monitor for safety and comfort.
[2018-09-13] MEDS: Cephalexin 500mg cap ORAL SCH ×3 (05:57→21:15)
[2018-09-13] MEDS: Glimepiride 1mg tab ORAL SCH (05:57)
[2018-09-13] MEDS: NovoLOG Insulin Flexpen SUBQ SCH ×4 (05:57→20:30)
--- NOTE | 2018-09-13 06:50 | NUR ---
HAND-OFF: Report given to Donny OLIVO.
[2018-09-13 08:00] VITALS: BP 140/88
[2018-09-13] MEDS: Milk of Magnesia 30ml Ud ORAL SCH (09:00)
[2018-09-13] MEDS: Docusate 100mg cap ORAL SCH ×3 (09:00→17:37)
[2018-09-13] MEDS: Doxycycline Monohydrate 100mg ORAL SCH ×2 (09:07→21:15)
--- NOTE | 2018-09-13 11:27 | Nephrology Progress Note ---
Assessment/Plan Problem List: (1) Fall (2) Hypertension (3) Diabetes mellitus (4) Proteinuria Assessment This is a 67-year-old male, status post fall. h/o diabetes and hypertension. proteinuria, underlying CKD because of his diabetes and hypertension. HTN Plan PLAN: Norvasc Loc inhibitors PRN Hydralazine K supplement Subjective ROS Limited/Unobtainable: No Objective Objective Last 24 Hour Vital Signs Date Time Temp Pulse Resp B/P (MAP) Pulse Ox O2 Delivery O2 Flow Rate FiO2 09/13/18 09:07 140/88 09/13/18 09:07 77 140/88 09/13/18 08:00 98.5 77 20 140/88 (105) 94 09/13/18 04:20 98.9 91 20 155/97 (116) 97 09/13/18 00:38 99.8 97 20 141/98 (112) 100 09/12/18 21:03 Room Air 09/12/18 20:18 107 09/12/18 20:08 98.2 115 20 132/86 (101) 96 09/12/18 18:16 89 154/92 09/12/18 16:00 97.5 90 18 128/72 (90) 99 09/12/18 11:55 98.9 88 21 157/103 (121) 95 Height (Feet): 5 Height (Inches): 10.00 Weight (Pounds): 199 General Appearance: no apparent distress Cardiovascular: normal rate Respiratory/Chest: lungs clear Abdomen: distended Cristopher Mcgee MD Sep 13, 2018 11:26
--- NOTE | 2018-09-13 11:30 | NUR ---
NURSE NOTES: patient refused 11;30 am blood sugar check. Patient consumed 100% of breakfast. No s/s of hypo/hyperglycemia @ this time. Rn explained the risks and benefits. Will continue to monitor.
[2018-09-13 12:00] VITALS: BP 131/80
[2018-09-13 16:00] VITALS: BP 148/79
[2018-09-13 17:37] VITALS: BP 159/84
--- NOTE | 2018-09-13 19:40 | NUR ---
HAND-OFF: Report given to Aida.
--- NOTE | 2018-09-13 19:51 | NUR ---
NURSE NOTES: Patient in bed, awake, sitting in chair. No IV access. No s/s respiratory distress noted or pain noted. Bed in lowest position and call light within reach. Will continue to monitor.
--- NOTE | 2018-09-13 20:45 | NUR ---
CASE MANAGEMENT: REVIEW SI: CONCUSSION . LACERATION / BACK OF HEAD EDEMA & RASHES ON THE RIGHT FOOT THE RIGHT FOOT T 98.6 HR 89 RR 20 BP 148/79 SAT 95% ROOM AIR IS: KEFLEX PO Q8HR DOXYCYCLINE PO Q12HR LOTENSIN PO QD PROTONIX PO QD MED/SURG STATUS DCP: PATIENT IS FROM [facility]
[2018-09-13] MEDS: Tamsulosin 0.4mg cap ORAL SCH (21:15)
--- NOTE | 2018-09-13 21:16 | NUR ---
NURSE NOTES: Patient refused blood sugar check stating "No." Nurse explained the risks and benefits but patient refused. Will continue to monitor.
--- NOTE | 2018-09-13 21:41 | General Progress Note ---
Assessment/Plan Problem List: (1) Psychiatric disorder ICD Codes: F99 - Mental disorder, not otherwise specified SNOMED: 15017678, 337442471 (2) Failure to thrive in adult ICD Codes: R62.7 - Adult failure to thrive SNOMED: 119725176 (3) Schizophrenia ICD Codes: F20.9 - Schizophrenia, unspecified SNOMED: 68769564 (4) Concussion ICD Codes: S06.0X9A - Concussion with loss of consciousness of unspecified duration, initial encounter SNOMED: 562810816 Qualifiers: Qualified Codes: S06.0X0A - Concussion without loss of consciousness, initial encounter (5) Fall ICD Codes: W19.XXXA - Unspecified fall, initial encounter SNOMED: 1526760, 027659371 Qualifiers: Qualified Codes: W19.XXXA - Unspecified fall, initial encounter Status: progressing Assessment/Plan: s/p fall psychsosis no headaceh dc in am Subjective ROS Limited/Unobtainable: Yes Allergies: Coded Allergies: No Known Allergies (Unverified , 06/04/15) Objective Last 24 Hour Vital Signs Date Time Temp Pulse Resp B/P (MAP) Pulse Ox O2 Delivery O2 Flow Rate FiO2 09/13/18 21:38 Room Air 09/13/18 17:37 96 159/84 09/13/18 16:00 98.6 89 20 148/79 (102) 95 09/13/18 12:00 98.1 79 20 131/80 (97) 94 09/13/18 09:07 140/88 09/13/18 09:07 77 140/88 09/13/18 09:00 Room Air 09/13/18 08:00 98.5 77 20 140/88 (105) 94 09/13/18 04:20 98.9 91 20 155/97 (116) 97 09/13/18 00:38 99.8 97 20 141/98 (112) 100 Height (Feet): 5 Height (Inches): 10.00 Weight (Pounds): 199 Neck: supple Cardiovascular: normal rate Respiratory/Chest: lungs clear Abdomen: soft Sabino Gomez MD Sep 13, 2018 21:41
--- NOTE | 2018-09-14 04:21 | NUR ---
NURSE NOTES: Patient refused vital signs, nurse explained purpose and benefits, patient still refused.
[2018-09-14] MEDS: Glimepiride 1mg tab ORAL SCH (05:22)
[2018-09-14] MEDS: Cephalexin 500mg cap ORAL SCH (05:22)
[2018-09-14] MEDS: NovoLOG Insulin Flexpen SUBQ SCH (05:23)
--- NOTE | 2018-09-14 05:23 | NUR ---
NURSE NOTES: Patient refused blood sugar check again shaking his head and stating "No". Nurse explained the risks and benefits but patient refused. No s/s of hypoglycemia or hyperglycemia note. Will continue to monitor.
--- NOTE | 2018-09-14 07:20 | NUR ---
HAND-OFF: Report given to SHIRA CRAVEN LVN.
--- NOTE | 2018-09-14 07:52 | NUR ---
NURSE NOTES: Patient received sitting in a chair. A/A/O, verbally responsive. refused to give information re: name and bday. Stated that " I do not want you to be my nurse" I had asked him "why" and he replied, " you asked too many questions." after I had performed my AIDET. I had explained to him the purpose. patient remained seated and watching TV. abdomen is distended and refused to let me know the last time he had a BM. No s/s respiratory distress noted. Bed kept in lowest position and call light within reach. Will continue to monitor.
[2018-09-14] MEDS: Docusate 100mg cap ORAL SCH (08:14)
[2018-09-14] MEDS: Doxycycline Monohydrate 100mg ORAL SCH (08:15)
[2018-09-14] MEDS: Milk of Magnesia 30ml Ud ORAL SCH (08:15)
--- NOTE | 2018-09-14 08:25 | NUR ---
NURSE NOTES: report given to eliseo rodríguez snf, pt room bedhold 400c, [facility] spoke w jerardo, [facility] 45mins
--- NOTE | 2018-09-14 10:04 | NUR ---
NURSE NOTES: ambulance personnel present. patient refused to sign personal belonging list. non compliant with ADL's and medication regimens. No IV access.
--- NOTE | 2018-09-14 10:06 | Infectious Diseases Prog Note ---
Assessment/Plan Assessment/Plan A; R foot cellulitis Paronychia DM Psychosis HPN s/p fall P: Agree with discharge plan Subjective ROS Limited/Unobtainable: Yes Constitutional: Reports: no symptoms Cardiovascular: Reports: no symptoms Gastrointestinal/Abdominal: Reports: no symptoms Musculoskeletal: Reports: other - cramp in right leg Allergies: Coded Allergies: No Known Allergies (Unverified , 06/04/15) Objective Vital Signs Last 24 Hour Vital Signs Date Time Temp Pulse Resp B/P (MAP) Pulse Ox O2 Delivery O2 Flow Rate FiO2 09/14/18 07:55 Room Air 09/13/18 21:38 Room Air 09/13/18 17:37 96 159/84 09/13/18 16:00 98.6 89 20 148/79 (102) 95 09/13/18 12:00 98.1 79 20 131/80 (97) 94 Height (Feet): 5 Height (Inches): 10.00 Weight (Pounds): 199 General Appearance: no acute distress HEENT: mucous membranes moist Respiratory/Chest: lungs clear Cardiovascular: normal rate Abdomen: soft, non tender Extremities: other Skin: other - erythema of R foot decreasing Neurologic/Psychiatric: alert, responsive, disoriented Current Medications Medications (Trade) Dose Ordered Sig/Pablo Route PRN Reason Start Time Stop Time Status Last Admin Dose Admin Acetaminophen (Tylenol) 325 mg Q6H PRN ORAL For Pain 09/10/18 16:15 10/10/18 16:14 Amlodipine Besylate (Norvasc) 5 mg BID ORAL 09/12/18 18:00 10/10/18 17:29 09/13/18 17:37 Benazepril HCl (Lotensin) 40 mg DAILY ORAL 09/13/18 09:00 10/11/18 16:44 09/13/18 09:07 Cephalexin (Keflex) 500 mg Q8HR ORAL 09/11/18 22:00 09/18/18 21:59 09/14/18 05:22 Dextrose (Dextrose 50%) 25 ml Q30M PRN IV Hypoglycemia 09/10/18 16:15 10/10/18 16:14 Dextrose (Dextrose 50%) 50 ml Q30M PRN IV Hypoglycemia 09/10/18 16:15 10/10/18 16:14 Docusate Sodium (Colace) 100 mg TID ORAL 09/12/18 13:00 10/11/18 08:59 Doxycycline Monohydrate (Doxycycline Monohydrate) 100 mg EVERY 12 HOURS ORAL 09/11/18 21:00 09/18/18 20:59 09/13/18 21:15 Glimepiride (Amaryl) 1 mg ACBREAKFAST ORAL 09/11/18 06:30 10/11/18 06:29 09/14/18 05:22 Hydralazine HCl (Apresoline) 25 mg Q4H PRN ORAL bp over 160 syst 09/12/18 11:30 10/12/18 11:29 Insulin Aspart (NovoLOG) BEFORE MEALS AND HS SUBQ 09/10/18 16:30 10/10/18 16:29 09/11/18 21:01 Magnesium Hydroxide (Mom) 30 ml DAILY ORAL 09/10/18 16:45 10/10/18 16:44 09/11/18 08:16 Olanzapine (ZyPREXA) 5 mg BEDTIME ORAL 09/10/18 21:00 10/10/18 20:59 09/13/18 21:15 Pantoprazole (Protonix) 40 mg DAILY ORAL 09/10/18 16:30 10/10/18 16:29 09/13/18 09:07 Potassium Chloride (K-Dur) 40 meq DAILY ORAL 09/13/18 09:00 10/13/18 08:59 09/13/18 09:07 Sitagliptin Phosphate (Januvia) 100 mg DAILY ORAL 09/10/18 16:30 10/10/18 16:29 09/13/18 09:07 Sodium Phosphate (Fleet's Sodium Phosl Enema) 133 ml DAILY PRN RECTAL Constipation 09/10/18 16:15 10/10/18 16:14 Tamsulosin HCl (Flomax) 0.4 mg BEDTIME ORAL 09/10/18 21:00 10/10/18 20:59 09/13/18 21:15 Bhaskar Rendon MD Sep 14, 2018 10:06
--- NOTE | 2018-09-14 10:11 | NUR ---
NURSE NOTES: discharged via ambulance. no acute resp distress noted. in stable condition.
--- NOTE | 2018-09-15 15:27 | Discharge Summary ---
Discharge Summary Discharge Summary _ DATE OF ADMISSION: 09/10/2018 DATE OF DISCHARGE: 09/14/2018 DISCHARGED BY: Dr. Gomez REASON FOR ADMISSION: 67 years old male with past medical history of hypertension, diabetes mellitus , encephalopathy, GERD, anemia, presented after he sustained a mechanical trip and fall and hit the back of his head. He denied loss of consciousness. He denied chest pain or shortness of breath. Patient with mild confusion which was his baseline. He denied neck pain. Patient was sent from intermediate facility for evaluation. Patient did report some posterior headache with a sharp pain sensation. Upon evaluation vital signs reveal elevated blood pressure 167/98. Patient noted to have superficial laceration at the head , which was repaired with loki. Laboratory work-up revealed mild leukocytosis WBC 11.5, stable hemoglobin and hematocrit. Stable electrolytes and renal parameters. Stable LFT. Urinalysis revealed no evidence of UTI. +[address] scan of the head revealed no acute intracranial bleeding, mass-effect or edema. Chronic small vessel disease noted. Patient subsequently admitted to for further management. CONSULTANTS: ID specialist Dr. Lynn hand screen printer Dr. Mcgee HOSPITAL COURSE: Patient admitted to medical surgical floor. Blood pressure was managed with calcium channel zaire, JOSE inhibitor was added for renal protection due to presence of proteinuria. Blood sugar was managed with oral anti-glycemics Januvia and Amaryl. Sliding scale of insulin was on board as needed. Patient showed evidence of right foot cellulitis and paronychia. ID specialist follow. Patient was on oral Keflex and doxycycline. No fevers, no leukocytosis. Renal parameters and electrolytes were closely monitored, electrolytes/ potassium corrected as needed, and nephrotoxins were avoided. Renal parameters remained stable GI prophylaxis provided. Flomax continued. Fall precaution maintained. Patient clinically stabilized and was ready for discharge to intermediate facility for continuation of care. FINAL DIAGNOSES: Status post mechanical fall Concussion Acute head injury , requiring superficial laceration repair with loki Right foot cellulitis Paronychia Diabetes mellitus Hypertension Proteinuria Underlying chronic kidney disease Psychosis DISCHARGE MEDICATIONS: See Medication Reconciliation list. DISCHARGE INSTRUCTIONS: Patient was discharged to the intermediate facility. Follow up with medical doctor at the facility. I have been assigned to dictate discharge summary for this account. I was not involved in the patient's management. Ronit Powell NP Sep 15, 2018 15:26
== END 2018-09-14 10:23 | DRG 89 ==
LOC: EDBD 12:09 → EMR 13:20 → 4E 13:23 → EDBEDREQ 14:01 → EMR 14:31
PROC: 0HQ0XZZ Repair Scalp Skin, External Approach (ICD-10-PCS; principal; 2018-09-10)
DX: S06.0X0A Concussion without loss of consciousness, initial encounter (principal); L03.115 Cellulitis of right lower limb; S01.01XA Laceration without foreign body of scalp, initial encounter; W01.0XXA Fall on same level from slipping, tripping and stumbling without subsequent striking against object, initial encounter; E86.0 Dehydration; I12.9 Hypertensive chronic kidney disease with stage 1 through stage 4 chronic kidney disease, or unspecified chronic kidney disease; E11.22 Type 2 diabetes mellitus with diabetic chronic kidney disease; N18.9 Chronic kidney disease, unspecified; K21.9 Gastro-esophageal reflux disease without esophagitis; Z87.891 Personal history of nicotine dependence; F20.9 Schizophrenia, unspecified
CPT/HCPCS: 36415; 70450; 80048; 80053; 81003; 82248; 82962; 83690; 85007; 85025; 85610; 85730; 87081; 90471; 90715; 93005; 99285; J1815; J8499